=== PATIENT | female | born 1935 | race Caucasian/White ===

== ENCOUNTER → 2016-08-29 10:06 | Outpatient (CLI) | payer MEDICARE, BC ==
[2016-03-24 09:33] VITALS: BMI 23.7
[~2016-08-29 10:06] MED LIST: ADVIL200 MG PO; ASPIRIN81 MG PO; ATROVENT 0.02%2.5 ML UPD; CARDIZEM 90 MG90 MG PO; LEVAQUIN500 MG PO; LISINOPRIL10 MG PO; PRAVACHOL40 MG PO; SYMBICORT 16010.2 GM INH; TENORMIN25 MG PO; VITAMIN B COMPL1 TAB PO; VITAMIN C1000 MG; XOPENEX 0.0.63 MG/3 UPD
== END | disposition home or self-care (01) ==
LOC: D.RT 10:00
DX: J44.9 Chronic obstructive pulmonary disease, unspecified (principal)

== ENCOUNTER → 2017-03-27 13:31 | Outpatient (CLI) | payer MEDICARE, BC ==
[2016-03-24 09:33] VITALS: BMI 23.7
== END | disposition home or self-care (01) ==
LOC: D.CT 03-23 13:00
DX: R91.8 Other nonspecific abnormal finding of lung field (principal)

== ENCOUNTER → 2017-07-09 15:30 | Outpatient (CLI) | payer MEDICARE, BC ==
[2016-03-24 09:33] VITALS: BMI 23.7
== END | disposition home or self-care (01) ==
LOC: D.CT 15:30
DX: R10.9 Unspecified abdominal pain (principal)

== ENCOUNTER 2018-03-13 15:57 | Emergency (ER) | payer MEDICARE ==
[~2018-03-13] VITALS: Ht 172.7 cm; Wt 71.8 kg
[2018-03-13 16:04] VITALS: Ht 172.7 cm; Wt 71.8 kg
[2018-03-13] MEDS ORDERED: ELIQUIS5 MG PO (16:08)
[2018-03-13] MEDS ORDERED: CARDIZEM120 MG PO (16:10)
[2018-03-13] MEDS ORDERED: LISINOPRIL10 MG PO (16:10)
[2018-03-13 18:11] VITALS: BP 148/70
== END 2018-03-13 18:12 | disposition home or self-care (01) ==
LOC: D.ER 15:57
DX: S09.90XA Unspecified injury of head, initial encounter (principal); W20.8XXA Other cause of strike by thrown, projected or falling object, initial encounter; Y93.89 Activity, other specified; Y92.019 Unspecified place in single-family (private) house as the place of occurrence of the external cause; R51 Headache; I10 Essential (primary) hypertension; I50.9 Heart failure, unspecified; I25.10 Atherosclerotic heart disease of native coronary artery without angina pectoris; J44.9 Chronic obstructive pulmonary disease, unspecified; F17.200 Nicotine dependence, unspecified, uncomplicated

== ENCOUNTER → 2018-03-25 13:15 | Outpatient (CLI) | payer MEDICARE, MEDICAID ==
[2018-03-13 16:04] VITALS: BMI 24.0
[~2018-03-25 13:15] MED LIST changes: +ASPIRIN325 MG PO; +BYSTOLIC5 MG PO; +CARDIZEM120 MG PO; +ELIQUIS5 MG PO; +FLORAJEN3 CAPS460 MG PO; +FLUTICASONE PRO16 GM NASAL; +IPRAT-ALBUT 0.5-3 ML INH; +LOSARTAN POTASS25 MG PO; +NICODERM C1 PATCH .1 TRANSDERM; +OMNICEF300 MG PO; +PROAIR HFA8.5 GM INH; +TESSALON PERLE100 MG PO; +VITAMIN E400 UNI2 PO
== END | disposition home or self-care (01) ==
LOC: D.RT 13:15
DX: R93.8 Abnormal findings on diagnostic imaging of other specified body structures (principal); J44.9 Chronic obstructive pulmonary disease, unspecified

== ENCOUNTER 2018-04-21 19:54 | Inpatient (IN) | payer MEDICARE, MEDICAID ==
[~2018-04-21] VITALS: Ht 172.7 cm; Wt 72.7 kg
--- NOTE | ~2018-04-21 | EC ---
PATIENT:BAIRON JASSO DATE OF SERVICE: 04/24/18 SEX: F MEDICAL RECORD: [id number] DATE OF : [birth year] LOCATION:D.MS [facility] AGE OF PATIENT: 82 ADMISSION DATE: 04/24/18 REFERRING PHYSICIAN: INTERPRETING PHYSICIAN: EBONY WORKMAN MD ECHOCARDIOGRAM REPORT ECHO CHARGES 4 ECHO COMPLETE Date: 04/25/18 CLINICAL DIAGNOSIS: CVA ECHOCARDIOGRAPHIC MEASUREMENTS (adult normal given) AC root (d.<3.7cm) 3.5 cm LV Septum d (<1.2 cm> 1.4 cm Valve Excursion 1.5 cm LV Septum (systole) 1.88 cm Left Atria (s.<4.0cm> 3.0 cm LVPW d(<1.2cm) 1.5 cm RV (d.<2.3cm) 2.9 cm LVPW (sytole) 1.6 cm LV diastole(<5.6CM) 3.9 cm MV E-F(>70mm/sec) cm LV systole 2.7 cm LVOT Diameter 1.7 cm MV exc.(>10mm) 14 cm Est.ejection fraction (50-75%) % DOPPLER: LVIT cm/sec A 114 cm/sec E 104 cm/sec LA cm/sec RVSP 25 mmHg LVOT 149 cm/sec AOP1/2T m/s Asc. Ao 175 cm/sec RVOT 108 cm/sec RA cm/sec PA 123 cm/sec AV Gradient Peak 12.25mmHg AV Mean 6.87 mmHg AV Area 2.0 cm MV Gradient Peak 5.77 mmHg MV Mean 2.94 mmHg MV Area cm COMMENTS: Log Buncher: Heide URRUTIA Forest Engineer: 1 Dr. Workman TAPE# PACS Pericardial Effusion N DATE OF SERVICE: 04/25/2018 FINDINGS: 1. Left ventricular chamber size is within normal limits. Left ventricular systolic function is normal. Overall ejection fraction is estimated at 60%. 2. Left atrium, right atrium, and right ventricle chamber sizes are within normal limit. Left atrium measures 3.0 cm. 3. Valvular structures have normal structure and motion. 4. Doppler interrogation reveals only trace tricuspid regurgitation. No other valvular insufficiency or stenosis. ECHOCARDIOGRAM REPORT [id number] BAIRON JASSO 5. Tiny patent foramen ovale is seen with minimal [id number] shunt. Pulmonary systolic pressure is normal, estimated at 25 mmHg. 6. No evidence of pericardial effusion or left ventricular thrombus. TRANSINT:[id number] Voice Confirmation ID: [id number] DOCUMENT ID: [id number] EBONY WORKMAN MD at 1950 CC: [id number] DICTATION DATE: 04/25/18 1617 SAXOPHONE ASSEMBLER: 04/25/18 1710 DIS IN 04/26/18 [place] [id number] [place] [id number]
--- NOTE | ~2018-04-21 | HP ---
PATIENT: BAIRON JASSO MEDICAL RECORD: [id number] ACCOUNT: [id number] LOCATION:D.MS [facility] : [birth year] ADMISSION DATE: 04/21/18 HISTORY AND PHYSICAL EXAMINATION HISTORY OF PRESENT ILLNESS: An 82-year-old female presented to the Emergency Room with a complaint of numbness, tingling of right hand, right lower lip, weakness in her left leg was having difficulty holding on to stuff, has had past episodes of this. It was more severe last night, brought in by EMS for evaluation. She had a CT scan of her head at the end of February, which showed chronic small vessel disease with cerebral atrophy. PAST MEDICAL HISTORY: Significant for hypertension, hyperlipidemia, paroxysmal atrial fibrillation, abdominal aortic aneurysm, nicotine dependence 60+ pack years, hypothyroidism, COPD, recurrent pneumonia. ALLERGIES: CODEINE, SULFA DRUGS, reported severe agitation with PAIN MEDICATIONS. CURRENT MEDICATIONS: Reviewed with the patient, Eliquis 5 mg b.i.d., lisinopril, Bystolic, pravastatin, home inhalers. REVIEW OF SYSTEMS: GENERAL: No acute change in weight or appetite. HEENT: Mild headache. No visual changes, no tinnitus, no epistaxis, no dysphagia. CARDIOVASCULAR: History as above. Denies chest pain, denies palpitations. Had a significant elevation in her blood pressure on presentation to the Emergency Room. PULMONARY: Denies hemoptysis, chronic cough, wheeze, COPD. Reports being treated for pneumonia as outpatient from urgent care on antibiotics, but is afebrile. GASTROINTESTINAL: Denies hematemesis, hematochezia, or melena. GENITOURINARY: Denies dysuria. Denies any change in frequency. MUSCULOSKELETAL: Degenerative arthritis. NEUROLOGIC: Mild right upper extremity weakness. She reports tingling in her right hand, significantly improved with control of her blood pressure. PHYSICAL EXAMINATION: VITAL SIGNS: Temp 99, blood pressure 128/47, heart rate 64, respirations 18, O2 sats 93%. Of note, blood pressure on admission to the ER was 218/95, was treated in the ER. Presently again is 128/47. GENERAL: Alert, oriented, ambulating independently, answers appropriately. HEENT: Normocephalic, atraumatic. Eyes: Pupils are equally round and reactive. Ears: Canals patent, TMs are intact. Nose: Nares patent without drainage. Throat: No erythema, no exudates. NECK: Supple. No lymphadenopathy. No appreciable carotid bruits. HEART: Presently regular rate and rhythm. History of paroxysmal atrial fibrillation. ABDOMEN: Soft, nontender. Bowel sounds in all 4 quadrants. EXTREMITIES: Present times 4. NEUROLOGIC: Intact. Mild right upper extremity weakness. She is unclear if this is residual from her TIA like symptoms which is chronic. She is otherwise back to her baseline per patient. Again, she is ambulatory independently. HISTORY AND PHYSICAL [id number] BAIRON JASSO We will obtain labs, attempt to obtain MRI. The patient was unable to participate or remain supine long enough for an MRI. She does agree to CT scan. ASSESSMENT AND PLAN: 1. Hypertensive crisis. Blood pressure control, monitor. 2. History of paroxysmal atrial fibrillation. We will resume home medications, adjust as needed. We will obtain carotid ultrasound and CT of the head. 3. Exacerbation of COPD. DuoNebs q.i.d. Continue DuoNebs, supportive care. Rocephin 1 gram daily. We will obtain sputum and blood cultures. The patient declines to see Dr. Stauffer. She has seen him in the past and they did not agree. She normally sees Dr. Austin. 4. Nicotine dependence, nicotine patch. Counseled on smoking cessation. TRANSINT:[id number] Voice Confirmation ID: [id number] DOCUMENT ID: [id number] ERASTO AGUAYO DO at 1259 CC: [id number] DICTATION DATE: 04/22/18 1221 TACK PULLER: 04/22/18 1254 [facility] [place] [id number] [place] [address]
--- NOTE | ~2018-04-21 | CN ---
PATIENT NAME:BAIRON JASSO MEDICAL RECORD: [id number] : 39 LOCATION:D.MS [facility] ADMIT DATE: 04/24/18 ACCOUNT: [id number] CONSULTING PHYSICIAN: EBONY EM MD REFERRING PHYSICIAN: CRISTIAN ROSA DO DATE OF CONSULTATION: 04/26/2018 ADMITTING DIAGNOSES: 1. Angina. 2. Coronary artery disease. 3. Previous PTCA stent. 4. CVA. 5. Hypertension. 6. COPD. HISTORY OF PRESENT ILLNESS: Mrs. Jasso presented with CVA. She was set to go to rehab today; however, she had an episode of chest discomfort. The chest discomfort lasted only approximately 5-10 minutes. She occasionally gets chest discomfort. She has a past history of coronary artery disease. Last cardiac stent was approximately 2 years ago. She is currently on Bystolic and losartan for blood pressure and hyperlipidemia was controlled with pravastatin. PHYSICAL EXAMINATION: GENERAL APPEARANCE: Well-nourished, well-developed, appears stated age. Level of distress, comfortable. VITAL SIGNS: Her heart rate has been in the 70s, systolic blood pressure in the 120-130 range. PSYCHIATRIC: Mental status, alert, normal affect. Orientation, oriented to time, place and person. EYES: Lids and conjunctiva, noninjected. No discharge, no pallor. ENT: Lips, teeth, gums, normal dentition. Oropharynx, no cyanosis, no pallor. NECK: Carotid arteries, bilateral normal upstroke, no bruits, no thrills. JUGULAR VEINS: No jugular venous pressure or distention. CERVICAL LYMPH NODES: Nontender, nonenlarged. THYROID: Not enlarged. Nontender. No nodules. LUNGS: Respiratory effort, unlabored. CHEST: Normal curvature. No thoracic deformity. No chest wall tenderness. Percussion, resonant. Auscultation, clear. No wheezes, no rales, no rhonchi. CARDIOVASCULAR: Precordial exam, nondisplaced. No heaves or pericardial thrills. Rate and rhythm, regular. Heart sounds, normal S1, normal S2. No S3, no gallop, no rub. Systolic murmur, not heard. Diastolic murmur, not heard. EXTREMITIES: No cyanosis, no edema. Peripheral pulses, full and equal in all extremities, except as noted. No bruits appreciated. ABDOMEN: Soft, nondistended. Normal aorta. No bruit. Nontender. No masses. Liver, nontender, no hepatomegaly. Spleen, nontender, no splenomegaly. MUSCULOSKELETAL: No joint tenderness. No joint swelling. No erythema. NEUROLOGICAL: Normal gait, normal strength, normal tone. SKIN: Warm and dry. EKG is with no changes. IMPRESSION: No further episodes of chest pain, stable from a cardiac standpoint. She can go to rehab. TRANSINT:[id number] Voice Confirmation ID: [id number] DOCUMENT ID: [id number] CONSULT REPORT [id number] LOUISA,EBONY CUMMINGS MD at 1950 CC: [id number] DICTATION DATE: 04/26/18 1247 CIRCULAR SAWYER STONE: 04/26/18 1252 DIS IN 04/26/18 [facility] [address] [place] [address]
[~2018-04-21 19:54] MED LIST changes: -ASPIRIN325 MG PO; -BYSTOLIC5 MG PO; -FLORAJEN3 CAPS460 MG PO; -FLUTICASONE PRO16 GM NASAL; -IPRAT-ALBUT 0.5-3 ML INH; -LOSARTAN POTASS25 MG PO; -NICODERM C1 PATCH .1 TRANSDERM; -OMNICEF300 MG PO; -PROAIR HFA8.5 GM INH; -TESSALON PERLE100 MG PO; -VITAMIN E400 UNI2 PO
[2018-04-21 20:30] VITALS: BP 218/95
[2018-04-21 21:07] VITALS: BP 184/84
[2018-04-21 21:39] VITALS: BP 143/68
[2018-04-22 02:15] VITALS: BP 173/84; Ht 172.7 cm; Wt 72.7 kg
[2018-04-22 04:25] VITALS: BP 128/47
[2018-04-22] MEDS ORDERED: LOSARTAN POTASS25 MG PO (12:23)
[2018-04-22] MEDS ORDERED: BYSTOLIC5 MG PO (12:24)
[2018-04-22] MEDS ORDERED: OMNICEF300 MG PO (12:24)
[2018-04-22] MEDS ORDERED: VITAMIN E400 UNI2 PO (12:26)
[2018-04-22] MEDS ORDERED: PROAIR HFA8.5 GM INH (12:27)
[2018-04-22 13:39] LABS: BASOPHILS 0.2 % (0-2); EOSINOPHILS 2.9 % (0-7); HEMATOCRIT 45.2 % (36.0-48.0); HEMOGLOBIN 15.5 g/dL (12-16); IMMATURE GRANULOCYTES 0.6 % (0-5); LYMPHOCYTES 27.6 % (15-50); MCH 30.9 pg (26.0-34.0); MCHC 34.3 g/dL (31.0-37.0); MCV 90.2 fL (80.0-100.0); MEAN PLATELET VOLUME 9.8 fL (7.4-10.4); MONOCYTES 7.3 % (2-11); NEUTROPHILS 61.4 % (40-80); PLATELET COUNT 249 10x3/uL (130-400); RBC 5.01 10x6/uL (4.00-5.40); RDW 13.6 % (11.5-14.5); WBC 10.1 10x3/uL (4.8-10.8)
[2018-04-22 14:03] LABS: CALC OSMOLALITY 266 mosm/kg (275-300); CHLORIDE - SERUM 96 mmol/L (98-107); CKMB 2.4 U/L (0.0-3.6); CREATININE - SERUM 0.7 mg/dL (0.6-1.3); GLUCOSE 126 mg/dL (74-106); POTASSIUM - SERUM 5.2 mmol/L (3.5-5.1); SODIUM 132 mmol/L (136-145); TROPONIN-I < 0.017 ng/mL (0.000-0.060); UREA NITROGEN 12 mg/dL (7-18); eGFR NON AFRICAN AMERICAN 85 mL/min (90-120)
[2018-04-22 18:34] VITALS: BP 125/63
[2018-04-22 22:14] VITALS: BP 135/59
[2018-04-23 04:33] LABS: BASOPHILS 0.2 % (0-2); EOSINOPHILS 2.7 % (0-7); HEMATOCRIT 41.8 % (36.0-48.0); HEMOGLOBIN 14.5 g/dL (12-16); IMMATURE GRANULOCYTES 0.6 % (0-5); LYMPHOCYTES 28.1 % (15-50); MCH 30.7 pg (26.0-34.0); MCHC 34.7 g/dL (31.0-37.0); MCV 88.4 fL (80.0-100.0); MEAN PLATELET VOLUME 9.6 fL (7.4-10.4); MONOCYTES 8.6 % (2-11); NEUTROPHILS 59.8 % (40-80); PLATELET COUNT 276 10x3/uL (130-400); RBC 4.73 10x6/uL (4.00-5.40); RDW 13.5 % (11.5-14.5); WBC 10.5 10x3/uL (4.8-10.8)
[2018-04-23 04:47] LABS: APTT 31.7 SECONDS (22.8-39.4); INR 0.97 (0.85-1.17); PROTIME 12.5 SECONDS (11.6-15.0)
[2018-04-23 04:56] LABS: ALBUMIN 3.3 g/dL (3.4-5.0); ANION GAP 10.9 mmol/L (8-16); BILIRUBIN - TOTAL 0.31 mg/dL (0.2-1.3); CALCIUM 8.4 mg/dL (8.5-10.1); CARBON DIOXIDE 26.1 mmol/L (21.0-32.0); CREATININE - SERUM 0.8 mg/dL (0.6-1.3); PROTEIN - SERUM 6.4 g/dL (6.4-8.2)
[2018-04-23 08:24] VITALS: BP 135/58
[2018-04-23 12:42] VITALS: BP 104/44
[2018-04-23 16:02] VITALS: BP 115/73
[2018-04-23 20:00] VITALS: BP 134/64
[2018-04-24 08:17] VITALS: BP 147/70
[2018-04-24 08:22] LABS: BASOPHILS 0.3 % (0-2); EOSINOPHILS 5.3 % (0-7); HEMATOCRIT 43.7 % (36.0-48.0); HEMOGLOBIN 15.1 g/dL (12-16); IMMATURE GRANULOCYTES 0.6 % (0-5); LYMPHOCYTES 25.6 % (15-50); MCH 30.4 pg (26.0-34.0); MCHC 34.6 g/dL (31.0-37.0); MCV 88.1 fL (80.0-100.0); MEAN PLATELET VOLUME 9.3 fL (7.4-10.4); MONOCYTES 8.1 % (2-11); NEUTROPHILS 60.1 % (40-80); PLATELET COUNT 263 10x3/uL (130-400); RBC 4.96 10x6/uL (4.00-5.40); RDW 13.6 % (11.5-14.5); WBC 9.9 10x3/uL (4.8-10.8)
[2018-04-24 08:45] LABS: ALBUMIN 3.5 g/dL (3.4-5.0); ALKALINE PHOSPHATASE 64 U/L (46-116); BILIRUBIN - TOTAL 0.43 mg/dL (0.2-1.3); CALC OSMOLALITY 263 mosm/kg (275-300); CALCIUM 8.5 mg/dL (8.5-10.1); CARBON DIOXIDE 27.9 mmol/L (21.0-32.0); CHLORIDE - SERUM 97 mmol/L (98-107); CREATININE - SERUM 0.7 mg/dL (0.6-1.3); GLUCOSE 132 mg/dL (74-106); POTASSIUM - SERUM 4.3 mmol/L (3.5-5.1); PROTEIN - SERUM 6.5 g/dL (6.4-8.2); SODIUM 131 mmol/L (136-145); UREA NITROGEN 11 mg/dL (7-18); eGFR NON AFRICAN AMERICAN 85 mL/min (90-120)
[2018-04-24 08:50] LABS: ALT (SGPT) 32 U/L (10-68)
[2018-04-24 16:38] VITALS: BP 125/66
[2018-04-24 21:13] VITALS: BP 124/64
[2018-04-25 04:34] LABS: BASOPHILS 0.2 % (0-2); EOSINOPHILS 6.3 % (0-7); IMMATURE GRANULOCYTES 0.7 % (0-5); LYMPHOCYTES 26.4 % (15-50); MCH 30.2 pg (26.0-34.0); MCHC 34.1 g/dL (31.0-37.0); MCV 88.6 fL (80.0-100.0); MEAN PLATELET VOLUME 9.2 fL (7.4-10.4); MONOCYTES 8.6 % (2-11); NEUTROPHILS 57.8 % (40-80); PLATELET COUNT 260 10x3/uL (130-400); RBC 4.63 10x6/uL (4.00-5.40); RDW 13.6 % (11.5-14.5)
[2018-04-25 04:49] LABS: ALBUMIN 3.1 g/dL (3.4-5.0); ALKALINE PHOSPHATASE 66 U/L (46-116); ALT (SGPT) 31 U/L (10-68); BILIRUBIN - TOTAL 0.38 mg/dL (0.2-1.3); CALC OSMOLALITY 261 mosm/kg (275-300); CALCIUM 8.5 mg/dL (8.5-10.1); CARBON DIOXIDE 29.1 mmol/L (21.0-32.0); CHLORIDE - SERUM 97 mmol/L (98-107); CREATININE - SERUM 0.6 mg/dL (0.6-1.3); GLUCOSE 111 mg/dL (74-106); POTASSIUM - SERUM 4.2 mmol/L (3.5-5.1); PROTEIN - SERUM 6.2 g/dL (6.4-8.2); SODIUM 130 mmol/L (136-145); UREA NITROGEN 13 mg/dL (7-18); eGFR NON AFRICAN AMERICAN > 90 mL/min (90-120)
[2018-04-25 05:14] VITALS: BP 128/69
[2018-04-25 05:28] VITALS: BP 134/64
[2018-04-25 09:30] VITALS: BP 134/64
[2018-04-25 12:34] VITALS: BP 119/65
[2018-04-25 18:35] VITALS: BP 123/71
[2018-04-25 21:05] VITALS: BP 123/70
[2018-04-26 04:18] LABS: HEMATOCRIT 40.1 % (36.0-48.0); HEMOGLOBIN 13.6 g/dL (12-16); LYMPHOCYTES 27.8 % (15-50); MCH 29.9 pg (26.0-34.0); MCHC 33.9 g/dL (31.0-37.0); MCV 88.1 fL (80.0-100.0); NEUTROPHILS 58.4 % (40-80); PLATELET COUNT 255 10x3/uL (130-400); RBC 4.55 10x6/uL (4.00-5.40); RDW 14.1 % (11.5-14.5); WBC 7.8 10x3/uL (4.8-10.8)
[2018-04-26 04:28] LABS: ALBUMIN 3.1 g/dL (3.4-5.0); ALKALINE PHOSPHATASE 60 U/L (46-116); ALT (SGPT) 31 U/L (10-68); BILIRUBIN - TOTAL 0.44 mg/dL (0.2-1.3); CALC OSMOLALITY 259 mosm/kg (275-300); CALCIUM 8.4 mg/dL (8.5-10.1); CARBON DIOXIDE 29.1 mmol/L (21.0-32.0); CHLORIDE - SERUM 97 mmol/L (98-107); CREATININE - SERUM 0.6 mg/dL (0.6-1.3); GLUCOSE 107 mg/dL (74-106); POTASSIUM - SERUM 4.2 mmol/L (3.5-5.1); PROTEIN - SERUM 6.2 g/dL (6.4-8.2); SODIUM 129 mmol/L (136-145); UREA NITROGEN 16 mg/dL (7-18); eGFR NON AFRICAN AMERICAN > 90 mL/min (90-120)
[2018-04-26 05:07] VITALS: BP 121/76
[2018-04-26 08:44] VITALS: BP 134/63
[2018-04-26] MEDS ORDERED: NICODERM C1 PATCH .1 TRANSDERM (09:26)
[2018-04-26] MEDS ORDERED: IPRAT-ALBUT 0.5-3 ML INH (09:26)
[2018-04-26] MEDS ORDERED: ASPIRIN325 MG PO (09:27)
[2018-04-26] MEDS ORDERED: TESSALON PERLE100 MG PO (09:27)
[2018-04-26] MEDS ORDERED: FLORAJEN3 CAPS460 MG PO (09:27)
[2018-04-26] MEDS ORDERED: FLUTICASONE PRO16 GM NASAL (09:27)
[2018-04-26 11:47] LABS: CKMB 2.5 U/L (0.0-3.6); CREATINE KINASE 58 UL (21-215); TROPONIN-I < 0.017 ng/mL (0.000-0.060)
[2018-04-26 12:57] VITALS: BP 122/63
== END 2018-04-26 15:20 | DRG 64 ==
LOC: D.ER 19:54 → D.MS 22:35 → OBSVTIME 22:35 → D.MS 04-24 06:45
PROVIDERS: Family Medicine
DX: I63.8 Other cerebral infarction (principal); J18.9 Pneumonia, unspecified organism; R51 Headache; R53.1 Weakness; R07.9 Chest pain, unspecified

== ENCOUNTER 2018-04-26 16:10 | Inpatient (IN) | payer MEDICARE, MEDICAID ==
[~2018-04-26] VITALS: Ht 172.7 cm; Wt 72.6 kg
--- NOTE | ~2018-04-26 | RHP ---
PATIENT: BAIRON JASSO MEDICAL RECORD: [id number] ACCOUNT: [id number] LOCATION:[facility] [address] : [birth year] ADMISSION DATE: 04/26/18 REHABILITATION HISTORY AND PHYSICAL EXAMINATION POST ADMISSION PHYSICIAN EXAMINATION POST-ADMISSION PHYSICAL EXAMINATION AND HISTORY AND PHYSICAL DATE OF ADMISSION: 04/26/2018 ADMITTING DIAGNOSIS: Acute lacunar infarct in the left thalamus. HISTORY OF PRESENT ILLNESS: The patient admitted to inpatient rehab with CVA. She has lacunar infarct within the left thalamus. Dr. Workman was consulted prior to rehab admission as she had an episode of chest pain. Chest discomfort lasted only 5-10 minutes. She occasionally gets chest discomfort. She has past medical history of coronary artery disease. She had a coronary stent approximately 2 years ago. She is currently on Bystolic and losartan for blood pressure and hyperlipidemia, which is controlled by Pravachol. They continued to manage while in rehab and will continue telemetry on her throughout her stay. She initially presented to the Emergency Room on 04/24/2018, with complains of numbness and tingling in her right arm, right lower lip, weakness in her left leg, having difficulty holding on to things. She had episodes of this in the past. It was more severe, the night prior to this. She was brought in by EMS for evaluation, had a CT of her head at the end of February, which showed chronic small vessel disease and cerebral atrophy. She got a history of COPD and acute exacerbation, recurrent pneumonia and uses CPAP at home. She has CHF and history of seizures and vertigo. She currently is an everyday smoker. Prior to this admission, she lived alone, was completely independent with ADLs and ambulation, was driving her own car. Currently presenting with decreased standing balance and exhibits impairment with gross and fine motor coordination. She is at risk to fall due to her poor dynamic standing balance. She has ambulated 150 feet with bilateral hands hold for stability and several episodes of loss of balance, which required intensive PT and OT in order to return her back to her prior level of functioning. ST evaluation also states that her speech is intelligible, although noticeably in error secondary to her ataxia, dysarthria. She will require follow up for oral stage dysphagia, dysarthria and cognitive linguistic defects. Barriers include living alone, respiratory status endurance, smoking. She will require medical management of these listed comorbidities in order to get back to her prior level of functioning and hopefully return back to home. COMORBIDITIES: Include hypertensive crisis, COPD, shortness of breath, fever, headache, pancreatitis, paroxysmal atrial fib, TIA, CHF, coronary artery disease, hyperlipidemia, nicotine dependence, recurrent pneumonia, emphysema, atherosclerotic disease, arthritis and osteoporosis. PAST MEDICAL HISTORY: Significant for hypertension, hyperlipidemia, paroxysmal atrial fib, abdominal aortic aneurysm and nicotine dependence, hypothyroidism, COPD and recurrent pneumonia. PAST SURGICAL HISTORY: Please see previous charts. ALLERGIES: CODEINE AND SULFA DRUGS. HISTORY AND PHYSICAL [id number] LOUISA,BAIRON Xiong CURRENT MEDICATIONS: Include DuoNeb updrafts q.i.d., aspirin chewable 81 mg daily, vitamin B complex vitamin daily, vitamin E 400 units daily, and Nicoderm patch 14 mg every 24 hours, Bystolic 5 mg daily, Floranex 460 mg daily, Flonase nasal spray 1 spray daily, Pravachol 40 mg at bedtime, Cozaar 25 mg at bedtime, Tylenol 500 mg q.6 hours p.r.n., Tessalon Perles 100 mg t.i.d. and albuterol updrafts p.r.n. and also Eliquis 5 mg b.i.d. HABITS: Does have a history of tobacco use. FAMILY HISTORY: Noncontributory. SOCIAL HISTORY: The patient hopes to return back home and get back to her prior level of functioning. REVIEW OF SYSTEMS: GENERAL: Does complain of weakness and fatigue. HEENT: Denies cold, cough, or congestion. CARDIOVASCULAR: Denies chest pain. PHYSICAL EXAMINATION: VITAL SIGNS: Stable, afebrile. Generally an elderly female, in no acute distress, alert upon exam. HEENT: Normocephalic and atraumatic. Mucosa moist. NECK: Supple. No lymphadenopathy. LUNGS: Clear at this time. HEART: Regular rate and rhythm. ABDOMEN: Benign. EXTREMITIES: No clubbing, cyanosis or edema. NEUROLOGIC: She does have some noted weakness. LABORATORY DATA: White count 7.8, H&H 13 and 40, and platelet count was noted to be 255. Her admit chemistry showed a sodium of 129, potassium 4.2, BUN and creatinine of 16 and 0.6 and blood sugar was noted to be 107. Urine that was done on 03/24/2018, showed no signs of any problems. Her rheumatoid and her AIDEN screen were both negative. ASSESSMENT: This is an 82-year-old female patient admitted to rehab with a working diagnosis of lacunar infarct or cerebrovascular accident. The patient has potential to make improvement. We instituted the following multidisciplinary therapies including but not limited to physical, occupational, respiratory, speech, nutritional services, prosthetics and orthotics. Given her complex medical condition and risk for more complications, rehabilitation services, cannot be provided at a low level of care such as skilled nurse facility. PLAN: 1. Admit to [facility] for intensive inpatient therapy to include the following disciplines: A. Physical therapy to improve gait, all transfer skills and bed mobility to a modified independent level. B. Occupational therapy to a modified independent level. C. Case management to assist with discharge planning and placement options. D. Nutrition to assist with nutritional needs. E. Rehabilitation nursing to assist in monitoring the patient's underlying HISTORY AND PHYSICAL [id number] LOUISA,BAIRON B medical conditions and to assist with any type of bowel or bladder management. 2. The patient's current medication and medical care will be continued. 3. The patient will be placed on standard fall precautions. 4. We will follow up in the a.m. 5. We will watch closely and have her follow up with speech therapy and will get her back home as soon as possible. TRANSINT:[id number] Voice Confirmation ID: [id number] DOCUMENT ID: [id number] MJ notes whether there has been none or any medical/functional change since admission: - No change since preadmission screen. MJ attests patient continues to be appropriate for IRF: - Continues to be appropriate. YISSEL RAM MD at 1733 CC: [id number] DICTATION DATE: 04/26/182158 SILK SCREEN PAINTER: 04/26/18 5132 DIS IN 05/01/18 [place] [id number] [place] [address]
[~2018-04-26 16:10] MED LIST changes: +ASPIRIN325 MG PO; +BYSTOLIC5 MG PO; +FLORAJEN3 CAPS460 MG PO; +FLUTICASONE PRO16 GM NASAL; +IPRAT-ALBUT 0.5-3 ML INH; +LOSARTAN POTASS25 MG PO; +NICODERM C1 PATCH .1 TRANSDERM; +OMNICEF300 MG PO; +PROAIR HFA8.5 GM INH; +TESSALON PERLE100 MG PO; +VITAMIN E400 UNI2 PO
[2018-04-26 17:14] VITALS: BP 135/63; BMI 24.3
[2018-04-26 19:00] VITALS: BP 139/69
[2018-04-27 06:10] LABS: BASOPHILS 0.4 % (0-2); EOSINOPHILS 6.8 % (0-7); HEMATOCRIT 39.1 % (36.0-48.0); HEMOGLOBIN 13.5 g/dL (12-16); IMMATURE GRANULOCYTES 0.6 % (0-5); LYMPHOCYTES 25.3 % (15-50); MCH 30.5 pg (26.0-34.0); MCHC 34.5 g/dL (31.0-37.0); MCV 88.5 fL (80.0-100.0); MONOCYTES 8.8 % (2-11); NEUTROPHILS 58.1 % (40-80); PLATELET COUNT 255 10x3/uL (130-400); RBC 4.42 10x6/uL (4.00-5.40); RDW 13.4 % (11.5-14.5)
[2018-04-27 06:38] LABS: CALC OSMOLALITY 260 mosm/kg (275-300); CALCIUM 8.1 mg/dL (8.5-10.1); CARBON DIOXIDE 27.6 mmol/L (21.0-32.0); CHLORIDE - SERUM 96 mmol/L (98-107); CREATININE - SERUM 0.7 mg/dL (0.6-1.3); GLUCOSE 99 mg/dL (74-106); POTASSIUM - SERUM 4.3 mmol/L (3.5-5.1); SODIUM 130 mmol/L (136-145); UREA NITROGEN 13 mg/dL (7-18); eGFR NON AFRICAN AMERICAN 85 mL/min (90-120)
[2018-04-27 08:00] VITALS: BP 106/53
[2018-04-27 09:23] VITALS: Ht 172.7 cm; Wt 72.6 kg
[2018-04-27 23:05] VITALS: BP 110/66
[2018-04-28 08:00] VITALS: BP 125/73
[2018-04-28 20:46] VITALS: BP 143/43
[2018-04-29 06:23] LABS: BASOPHILS 0.4 % (0-2); EOSINOPHILS 6.4 % (0-7); HEMATOCRIT 37.7 % (36.0-48.0); HEMOGLOBIN 12.9 g/dL (12-16); IMMATURE GRANULOCYTES 0.3 % (0-5); LYMPHOCYTES 26.3 % (15-50); MCH 30.4 pg (26.0-34.0); MCHC 34.2 g/dL (31.0-37.0); MCV 88.9 fL (80.0-100.0); MEAN PLATELET VOLUME 9.1 fL (7.4-10.4); MONOCYTES 12.3 % (2-11); NEUTROPHILS 54.3 % (40-80); PLATELET COUNT 240 10x3/uL (130-400); RBC 4.24 10x6/uL (4.00-5.40); RDW 13.5 % (11.5-14.5); WBC 7.8 10x3/uL (4.8-10.8)
[2018-04-29 06:35] LABS: CALC OSMOLALITY 265 mosm/kg (275-300); CALCIUM 8.4 mg/dL (8.5-10.1); CARBON DIOXIDE 27.2 mmol/L (21.0-32.0); CHLORIDE - SERUM 98 mmol/L (98-107); CREATININE - SERUM 0.6 mg/dL (0.6-1.3); GLUCOSE 100 mg/dL (74-106); POTASSIUM - SERUM 4.2 mmol/L (3.5-5.1); SODIUM 132 mmol/L (136-145); UREA NITROGEN 15 mg/dL (7-18); eGFR NON AFRICAN AMERICAN > 90 mL/min (90-120)
[2018-04-29 07:48] VITALS: BP 138/68
[2018-04-29 19:00] VITALS: BP 124/59
[2018-04-30 08:57] VITALS: BP 134/69
[2018-04-30 19:00] VITALS: BP 136/61
[2018-05-01 08:00] VITALS: BP 131/73
== END 2018-05-01 11:22 | disposition home or self-care (01) | DRG 56 ==
LOC: D.REHAB 16:10
PROVIDERS: Emergency Medicine
DX: I69.30 Unspecified sequelae of cerebral infarction (principal); K85.90 Acute pancreatitis without necrosis or infection, unspecified; J18.9 Pneumonia, unspecified organism; I16.9 Hypertensive crisis, unspecified; I11.0 Hypertensive heart disease with heart failure; I50.9 Heart failure, unspecified; R06.02 Shortness of breath; R13.11 Dysphagia, oral phase; R50.9 Fever, unspecified; I48.0 Paroxysmal atrial fibrillation; I25.10 Atherosclerotic heart disease of native coronary artery without angina pectoris; E78.5 Hyperlipidemia, unspecified; F17.200 Nicotine dependence, unspecified, uncomplicated; M81.0 Age-related osteoporosis without current pathological fracture; M19.90 Unspecified osteoarthritis, unspecified site; J43.9 Emphysema, unspecified; R27.0 Ataxia, unspecified; R47.1 Dysarthria and anarthria

== ENCOUNTER 2018-06-13 23:25 | Emergency (ER) | payer MEDICARE, MEDICAID ==
[~2018-06-13] VITALS: Ht 172.7 cm; Wt 72.7 kg
[2018-06-13 23:30] VITALS: Ht 172.7 cm; Wt 72.7 kg
[2018-06-13 23:46] LABS: BASOPHILS 0.4 % (0-2); EOSINOPHILS 4.2 % (0-7); HEMATOCRIT 44.2 % (36.0-48.0); HEMOGLOBIN 14.9 g/dL (12-16); IMMATURE GRANULOCYTES 0.5 % (0-5); LYMPHOCYTES 32.5 % (15-50); MCH 30.8 pg (26.0-34.0); MCHC 33.7 g/dL (31.0-37.0); MCV 91.5 fL (80.0-100.0); MEAN PLATELET VOLUME 9.6 fL (7.4-10.4); MONOCYTES 10.2 % (2-11); NEUTROPHILS 52.2 % (40-80); PLATELET COUNT 238 10x3/uL (130-400); RBC 4.83 10x6/uL (4.00-5.40); RDW 13.8 % (11.5-14.5); WBC 7.6 10x3/uL (4.8-10.8)
[2018-06-13 23:55] LABS: APTT 32.1 SECONDS (22.8-39.4); INR 0.96 (0.85-1.17); PROTIME 12.4 SECONDS (11.6-15.0)
[2018-06-14 00:05] LABS: ALBUMIN 3.9 g/dL (3.4-5.0); ALKALINE PHOSPHATASE 77 U/L (46-116); ALT (SGPT) 36 U/L (10-68); BILIRUBIN - TOTAL 0.36 mg/dL (0.2-1.3); CALC OSMOLALITY 274 mosm/kg (275-300); CALCIUM 8.8 mg/dL (8.5-10.1); CARBON DIOXIDE 31.2 mmol/L (21.0-32.0); CHLORIDE - SERUM 101 mmol/L (98-107); CREATININE - SERUM 0.7 mg/dL (0.6-1.3); GLUCOSE 103 mg/dL (74-106); POTASSIUM - SERUM 3.8 mmol/L (3.5-5.1); PROTEIN - SERUM 7.6 g/dL (6.4-8.2); SODIUM 138 mmol/L (136-145); UREA NITROGEN 11 mg/dL (7-18); eGFR NON AFRICAN AMERICAN 85 mL/min (90-120)
[2018-06-14 00:12] LABS: CKMB 2.7 U/L (0.0-3.6); CREATINE KINASE 72 UL (21-215); MAGNESIUM - SERUM 1.9 mg/dL (1.8-2.4); TROPONIN-I < 0.017 ng/mL (0.000-0.060)
[2018-06-14] MEDS ORDERED: HYDRALAZINE HCL10 MG PO (00:46)
[2018-06-14 01:18] VITALS: BP 113/55
== END 2018-06-14 01:19 | disposition home or self-care (01) ==
LOC: D.ER 23:25
PROVIDERS: Family Medicine
DX: I10 Essential (primary) hypertension (principal); G40.909 Epilepsy, unspecified, not intractable, without status epilepticus; E07.9 Disorder of thyroid, unspecified; I11.0 Hypertensive heart disease with heart failure; I50.9 Heart failure, unspecified; I25.10 Atherosclerotic heart disease of native coronary artery without angina pectoris; J44.9 Chronic obstructive pulmonary disease, unspecified; F17.200 Nicotine dependence, unspecified, uncomplicated

== ENCOUNTER 2018-06-16 20:12 | Inpatient (IN) | payer MEDICARE, MEDICAID ==
[~2018-06-16] VITALS: Ht 172.7 cm; Wt 72.7 kg
--- NOTE | ~2018-06-16 | MORECARE ---
CASE MANAGEMENT DISCHARGE SUMMARY PATIENT: BAIRON JASSO UNIT: [id number] ADM DATE: 06/17/18 AGE: 82 : 37 SEX: F ROOM/BED: D.2449 AUTHOR: ANDREINA QUINONES PHYSICIAN: REFERRING PHYSICIAN: CRISTIAN ROSA DO DATE OF SERVICE: 06/24/18 Discharge Plan Patient Name: BAIRON JASSO Facility: [facility]:[place] : 1935 Planned Disposition: Home Anticipated Discharge Date: 06/22/18 Discharge Date: 06/22/2018 Expected LOS: 5 Initial Reviewer: [email or web address] Initial Review Date: 06/19/2018 Generated: 06/24/18 9:17 am Comments DCP- Discharge Planning Updated by [email or web address]: Eddie Harper on 06/20/18 6:[address] Patient Name: BAIRON JASSO Encounter No: [id number] : 1935 Primary Insurance: [facility] [employer] Anticipated DC Date: 06-19-2018 Planned Disposition: Home DCP follow-up note: CM SPOKE TO PT IN ROOM AT PT'S REQUEST. PT INFORMED CM THAT SHE HAS HAD $20 AND A BOTTLE OF PRESCRIPTION LIBRIUM GO MISSING FROM HER ROOM. CM EXPLAINED THAT CM WILL HAVE SECURITY MAKE REPORT. CM NOTIFIED GAME WARDEN AND KAYCE WITH SECURITY WHO WILL COME BY AND MAKE REPORT SHORTLY. CM NOTIFIED BEDSIDE NURSE KVNG THAT PT HAS HER HOME MEDICATIONS IN ROOM WTIH HER. CM TO CONTINUE TO FOLLOW AND ASSIST IF NEEDED. Eddie Harper DCP- Discharge Planning Updated by [email or web address]: Eddie Harper on 06/19/18 12:[address] Patient Name: BAIRON JASSO Admission Status: ER Accout number: [id number] Admission Date: 06-17-2018 : 1935 Admission Diagnosis:ESSENTIAL (PRIMARY) HYPERTENSION Attending: CRISTIAN ROSA Current LOS: 2 Anticipated DC Date: 06-19-2018 Planned Disposition: Home Primary Insurance: [facility] [employer] SOL[employer] Discharge Planning Comments: CM MET WITH PT IN ROOM TO DISCUSS DISCHARGE PLANNING AND NEEDS. PT REPORTS LIVING AT HOME INDEPENDENTLY AND ALONE. PT HAS CPAP, NEBULIZER, ROLLING WALKER AND SHOWER CHAIR FROM [employer]. PT HAS NO OUTSIDE SERVICES ASSISTING IN THE HOME. CM DISCUSSED AVAILABILITY OF HOME HEALTH, REHAB SERVICES AND MEDICAL EQUIPMENT. PT DENIES DISCHARGE NEEDS, REPORTS HER SON WILL PICK HER UP FOR DISCHARGE HOME. PT REPORTS DISSATISFACTION WITH PREVIOUS HOSPITAL STAY WHERE SHE WAS "KEPT IN OBSERVATION FOR THREE DAYS"; CM EXPLAINED TO BEST OF CM ABILITY OF HOW OBSERVATION AND INPATIENT STATUS ARE DETERMINED. PT REPORTS "WELL THAT'S WATER UNDER THE BRIDGE" AND ASKED CM TO NOTIFY HER NURSE OF BACK PAIN AND WANTING SOMETHING FOR PAIN. IMPORTANT MESSAGE FROM MEDICARE PROVIDED AND EXPLAINED. CM NOTIFIED BEDSIDE NURSE. PT PLANS TO DISCHARGE HOME ALONE, DECLINED HOME HEALTH AND DENIES DISCHARGE NEEDS. PT REPORTS WILL CALL FAMILY FOR TRANSPORTATION HOME. CM TO FOLLOW AND ASSIST NEEDED. Pourer: Eddie Harper DCPIA - Discharge Planning Initial Assessment Updated by [email or web address]: Eddie Harper on 06/19/18 12:44 pm * Is the patient Alert and Oriented? Yes * How many steps to enter\\exit or inside your home? ELEVATOR * PCP DR. ROSA * Pharmacy [facility] * Preadmission Environment Home Alone * ADLs Independent * Equipment CPAP Nebulizer Rolling Walker Shower Chair * Other Equipment [employer] - EQUIPMENT PROVIDER * List name and contact numbers for known caregivers / representatives who currently or will assist patient after discharge: JEAN MARIE BECKER, RESHMA, MIAN BECKER, * Verbal permission to speak to the caregivers and representatives has been obtained from the patient. N/A * Community resources currently utilized None * Please name any agencies selected above. NONE * Additional services required to return to the preadmission environment? No * Can the patient safely return to the preadmission environment? Yes * Has this patient been hospitalized within the prior 30 days at any hospital? No Coverage Notice Reviewer: [id number] - Gemma Lipscomb Notice Issued Date-Time: 06/17/2018 14:45 Notice Type: Medicare Outpatient Observation Notice Notice Delivered To: Patient Relationship to Patient: Self Football Coach Name: Delivery Method: HAND - Hand Delivered Racquel Days: Prior Verbal Notification: Recipient Understood Notice: Yes Recipient Signature: Med Rec Note Co-signed by Attending: Coverage Notice Comment: PATIENT IS BLIND, NOTICE EXPLAINED TO HER AND SHE VERBALIZED UNDERSTANDING. Reviewer: [email or web address] - Eddie Harper Notice Issued Date-Time: 06/19/2018 12:20 Notice Type: IM Discharge Notice Notice Delivered To: Patient Relationship to Patient: Football Coach Name: Delivery Method: HAND - Hand Delivered Racquel Days: Prior Verbal Notification: Recipient Understood Notice: Yes Recipient Signature: Yes Med Rec Note Co-signed by Attending: Coverage Notice Comment: Last DP export: 06/20/18 6:36 p Patient Name: BAIRON JASSO Page [id number] at 0817 All edits/amendments must be made on the electronic document DICTATION DATE: 06/24/18815 CARROTER: DEE 06/24/18815 RPT#: [id number] DC DATE:06/22/18 STATUS: DIS IN [facility] [address] [place] [address] END OF REPORT
--- NOTE | ~2018-06-16 | MORECARE ---
CASE MANAGEMENT DISCHARGE SUMMARY PATIENT: BAIRON JASSO UNIT: [id number] ADM DATE: 06/17/18 AGE: 82 : 37 SEX: F ROOM/BED: D.1811 AUTHOR: ANDREINA QUINONES PHYSICIAN: REFERRING PHYSICIAN: CRISTIAN ROSA DO DATE OF SERVICE: 06/24/18 Discharge Plan Patient Name: BAIRON JASSO Facility: [facility]:[place] : 1935 Planned Disposition: Home Anticipated Discharge Date: 06/22/18 Discharge Date: 06/22/2018 Expected LOS: 5 Initial Reviewer: [id number] Initial Review Date: 06/19/2018 Generated: 06/24/18 9:24 am Comments DCP- Discharge Planning Updated by [id number]: Eddie Harper on 06/20/18 6:[address] Patient Name: BAIRON JASSO Encounter No: [id number] : 1935 Primary Insurance: [facility] MEDICARE SOLUTIONS Anticipated DC Date: 06-19-2018 Planned Disposition: Home DCP follow-up note: CM SPOKE TO PT IN ROOM AT PT'S REQUEST. PT INFORMED CM THAT SHE HAS HAD $20 AND A BOTTLE OF PRESCRIPTION LIBRIUM GO MISSING FROM HER ROOM. CM EXPLAINED THAT CM WILL HAVE SECURITY MAKE REPORT. CM NOTIFIED FIBROUS PLASTERER AND KAYCE WITH SECURITY WHO WILL COME BY AND MAKE REPORT SHORTLY. CM NOTIFIED BEDSIDE NURSE KVNG THAT PT HAS HER HOME MEDICATIONS IN ROOM WTIH HER. CM TO CONTINUE TO FOLLOW AND ASSIST IF NEEDED. Eddie Harper DCP- Discharge Planning Updated by [id number]: Eddie Harper on 06/19/18 12:[address] Patient Name: BAIRON JASSO Admission Status: ER Accout number: [id number] Admission Date: 06-17-2018 : 1935 Admission Diagnosis:ESSENTIAL (PRIMARY) HYPERTENSION Attending: CRISTIAN ROSA Current LOS: 2 Anticipated DC Date: 06-19-2018 Planned Disposition: Home Primary Insurance: [facility] MEDICARE SOLUTIONS Discharge Planning Comments: CM MET WITH PT IN ROOM TO DISCUSS DISCHARGE PLANNING AND NEEDS. PT REPORTS LIVING AT HOME INDEPENDENTLY AND ALONE. PT HAS CPAP, NEBULIZER, ROLLING WALKER AND SHOWER CHAIR FROM [employer]. PT HAS NO OUTSIDE SERVICES ASSISTING IN THE HOME. CM DISCUSSED AVAILABILITY OF HOME HEALTH, REHAB SERVICES AND MEDICAL EQUIPMENT. PT DENIES DISCHARGE NEEDS, REPORTS HER SON WILL PICK HER UP FOR DISCHARGE HOME. PT REPORTS DISSATISFACTION WITH PREVIOUS HOSPITAL STAY WHERE SHE WAS "KEPT IN OBSERVATION FOR THREE DAYS"; CM EXPLAINED TO BEST OF CM ABILITY OF HOW OBSERVATION AND INPATIENT STATUS ARE DETERMINED. PT REPORTS "WELL THAT'S WATER UNDER THE BRIDGE" AND ASKED CM TO NOTIFY HER NURSE OF BACK PAIN AND WANTING SOMETHING FOR PAIN. IMPORTANT MESSAGE FROM MEDICARE PROVIDED AND EXPLAINED. CM NOTIFIED BEDSIDE NURSE. PT PLANS TO DISCHARGE HOME ALONE, DECLINED HOME HEALTH AND DENIES DISCHARGE NEEDS. PT REPORTS WILL CALL FAMILY FOR TRANSPORTATION HOME. CM TO FOLLOW AND ASSIST NEEDED. Psychiatric Rn: Eddie Harper DCPIA - Discharge Planning Initial Assessment Updated by [id number]: Eddie Harper on 06/19/18 12:44 pm * Is the patient Alert and Oriented? Yes * How many steps to enter\\exit or inside your home? ELEVATOR * PCP DR. ROSA * Pharmacy [facility] * Preadmission Environment Home Alone * ADLs Independent * Equipment CPAP Nebulizer Rolling Walker Shower Chair * Other Equipment [employer] - EQUIPMENT PROVIDER * List name and contact numbers for known caregivers / representatives who currently or will assist patient after discharge: JEAN MARIE BECKER, RESHMA, MIAN BECKER, * Verbal permission to speak to the caregivers and representatives has been obtained from the patient. N/A * Community resources currently utilized None * Please name any agencies selected above. NONE * Additional services required to return to the preadmission environment? No * Can the patient safely return to the preadmission environment? Yes * Has this patient been hospitalized within the prior 30 days at any hospital? No Coverage Notice Reviewer: [id number] - Gemma Lipscomb Notice Issued Date-Time: 06/17/2018 14:45 Notice Type: Medicare Outpatient Observation Notice Notice Delivered To: Patient Relationship to Patient: Self Track Subway Repair Supervisor Name: Delivery Method: HAND - Hand Delivered Racquel Days: Prior Verbal Notification: Recipient Understood Notice: Yes Recipient Signature: Med Rec Note Co-signed by Attending: Coverage Notice Comment: PATIENT IS BLIND, NOTICE EXPLAINED TO HER AND SHE VERBALIZED UNDERSTANDING. Reviewer: [id number] - Eddie Harper Notice Issued Date-Time: 06/19/2018 12:20 Notice Type: IM Discharge Notice Notice Delivered To: Patient Relationship to Patient: Track Subway Repair Supervisor Name: Delivery Method: HAND - Hand Delivered Racquel Days: Prior Verbal Notification: Recipient Understood Notice: Yes Recipient Signature: Yes Med Rec Note Co-signed by Attending: Coverage Notice Comment: Last DP export: 06/24/18 7:17 a Patient Name: BAIRON JASSO Page [phone] at 0824 All edits/amendments must be made on the electronic document DICTATION DATE: 06/24/18823 MATERIALS TECHNICIAN: DEE 06/24/18823 RPT#: [id number] DC DATE:06/22/18 STATUS: DIS IN [facility] [address] [place] [address] END OF REPORT
--- NOTE | ~2018-06-16 | MORECARE ---
CASE MANAGEMENT DISCHARGE SUMMARY PATIENT: BAIRON JASSO UNIT: [id number] ADM DATE: 06/17/18 AGE: 82 : 37 SEX: F ROOM/BED: D.4124 AUTHOR: ANDREINA QUINONES PHYSICIAN: REFERRING PHYSICIAN: CRISTIAN ROSA DO DATE OF SERVICE: 06/20/18 Discharge Plan Patient Name: BAIRON JASSO Facility: [facility]:[place] : 1935 Planned Disposition: Home Anticipated Discharge Date: 06/19/18 Discharge Date: Expected LOS: 2 Initial Reviewer: [id number] Initial Review Date: 06/19/2018 Generated: 06/20/18 7:36 pm Comments DCP- Discharge Planning Updated by [id number]: Eddie Harper on 06/20/18 5:[address] Patient Name: BAIRON JASSO Encounter No: [id number] : 1935 Primary Insurance: [facility] MEDICARE SOLUTIONS Anticipated DC Date: 06-19-2018 Planned Disposition: Home DCP follow-up note: CM SPOKE TO PT IN ROOM AT PT'S REQUEST. PT INFORMED CM THAT SHE HAS HAD $20 AND A BOTTLE OF PRESCRIPTION LIBRIUM GO MISSING FROM HER ROOM. CM EXPLAINED THAT CM WILL HAVE SECURITY MAKE REPORT. CM NOTIFIED QUALITY ASSURANCE ANALYST AND KAYCE WITH SECURITY WHO WILL COME BY AND MAKE REPORT SHORTLY. CM NOTIFIED BEDSIDE NURSE KVNG THAT PT HAS HER HOME MEDICATIONS IN ROOM WTIH HER. CM TO CONTINUE TO FOLLOW AND ASSIST IF NEEDED. Eddie Harper DCP- Discharge Planning Updated by [id number]: Eddie Harper on 06/19/18 11:[address] Patient Name: BAIRON JASSO Admission Status: ER Accout number: [id number] Admission Date: 06-17-2018 : 1935 Admission Diagnosis:ESSENTIAL (PRIMARY) HYPERTENSION Attending: CRISTIAN ROSA Current LOS: 2 Anticipated DC Date: 06-19-2018 Planned Disposition: Home Primary Insurance: [facility] MEDICARE SOLUTIONS Discharge Planning Comments: CM MET WITH PT IN ROOM TO DISCUSS DISCHARGE PLANNING AND NEEDS. PT REPORTS LIVING AT HOME INDEPENDENTLY AND ALONE. PT HAS CPAP, NEBULIZER, ROLLING WALKER AND [facility]. PT HAS NO OUTSIDE SERVICES ASSISTING IN THE HOME. CM DISCUSSED AVAILABILITY OF HOME HEALTH, REHAB SERVICES AND MEDICAL EQUIPMENT. PT DENIES DISCHARGE NEEDS, REPORTS HER SON WILL PICK HER UP FOR DISCHARGE HOME. PT REPORTS DISSATISFACTION WITH PREVIOUS HOSPITAL STAY WHERE SHE WAS "KEPT IN OBSERVATION FOR THREE DAYS"; CM EXPLAINED TO BEST OF CM ABILITY OF HOW OBSERVATION AND INPATIENT STATUS ARE DETERMINED. PT REPORTS "WELL THAT'S WATER UNDER THE BRID[place]" AND ASKED CM TO NOTIFY HER NURSE OF BACK PAIN AND WANTING SOMETHING FOR PAIN. IMPORTANT MESSAGE FROM MEDICARE PROVIDED AND EXPLAINED. CM NOTIFIED BEDSIDE NURSE. PT PLANS TO DISCHARGE HOME ALONE, DECLINED HOME HEALTH AND DENIES DISCHARGE NEEDS. PT REPORTS WILL CALL FAMILY FOR TRANSPORTATION HOME. CM TO FOLLOW AND ASSIST NEEDED. Family Dinner Service Specialist: Eddie Harper DCPIA - Discharge Planning Initial Assessment Updated by [id number]: Eddie Harper on 06/19/18 12:44 pm * Is the patient Alert and Oriented? Yes * How many steps to enter\\exit or inside your home? ELEVATOR * PCP DR. ROSA * Pharmacy [facility] * Preadmission Environment Home Alone * ADLs Independent * Equipment CPAP Nebulizer Rolling Walker Shower Chair * Other Equipment [employer] - EQUIPMENT PROVIDER * List name and contact numbers for known caregivers / representatives who currently or will assist patient after discharge: JEAN MARIE BECKER, RESHMA, MIAN BECKER, * Verbal permission to speak to the caregivers and representatives has been obtained from the patient. N/A * Community resources currently utilized None * Please name any agencies selected above. NONE * Additional services required to return to the preadmission environment? No * Can the patient safely return to the preadmission environment? Yes * Has this patient been hospitalized within the prior 30 days at any hospital? No Coverage Notice Reviewer: [id number] - Gemma Lipscomb Notice Issued Date-Time: 06/17/2018 14:45 Notice Type: Medicare Outpatient Observation Notice Notice Delivered To: Patient Relationship to Patient: Self Digital Assistant Name: Delivery Method: HAND - Hand Delivered Racquel Days: Prior Verbal Notification: Recipient Understood Notice: Yes Recipient Signature: Med Rec Note Co-signed by Attending: Coverage Notice Comment: PATIENT IS BLIND, NOTICE EXPLAINED TO HER AND SHE VERBALIZED UNDERSTANDING. Reviewer: [id number] - Eddie Harper Notice Issued Date-Time: 06/19/2018 12:20 Notice Type: IM Discharge Notice Notice Delivered To: Patient Relationship to Patient: Digital Assistant Name: Delivery Method: HAND - Hand Delivered Racquel Days: Prior Verbal Notification: Recipient Understood Notice: Yes Recipient Signature: Yes Med Rec Note Co-signed by Attending: Coverage Notice Comment: Last DP export: 06/19/18 11:58 Patient Name: BAIRON JASSO Page [phone] at 1836 All edits/amendments must be made on the electronic document DICTATION DATE: 06/20/181834 STAFFING RECRUITER: DEE 06/20/181834 RPT#: [id number] DC DATE: STATUS: ADM IN [facility] [address] [place] [address] END OF REPORT
--- NOTE | ~2018-06-16 | MORECARE ---
CASE MANAGEMENT DISCHARGE SUMMARY PATIENT: BAIRON JASSO UNIT: [id number] ADM DATE: 06/17/18 AGE: 82 : 37 SEX: F ROOM/BED: D.[facility]9 AUTHOR: ANDREINA QUINONES PHYSICIAN: REFERRING PHYSICIAN: CRISTIAN ROSA DO DATE OF SERVICE: 06/19/18 Discharge Plan Patient Name: BAIRON JASSO Facility: [facility]:[place] : 1935 Planned Disposition: Home Anticipated Discharge Date: 06/19/18 Discharge Date: Expected LOS: 2 Initial Reviewer: [email or web address] Initial Review Date: 06/19/2018 Generated: 06/19/18 1:49 pm DCPIA - Discharge Planning Initial Assessment Updated by TORRI: Eddie Harper on 06/19/18 12:44 pm * Is the patient Alert and Oriented? Yes * How many steps to enter\exit or inside your home? ELEVATOR * PCP DR. ROSA * Pharmacy [facility] * Preadmission Environment Home Alone * ADLs Independent * Equipment CPAP Nebulizer Rolling Walker Shower Chair * Other Equipment [employer] - EQUIPMENT PROVIDER * List name and contact numbers for known caregivers / representatives who currently or will assist patient after discharge: RESHMA QUINN, MIAN BECKER, * Verbal permission to speak to the caregivers and representatives has been obtained from the patient. N/A * Community resources currently utilized None * Please name any agencies selected above. NONE * Additional services required to return to the preadmission environment? No * Can the patient safely return to the preadmission environment? Yes * Has this patient been hospitalized within the prior 30 days at any hospital? No Coverage Notice Reviewer: [id number] - Gemma Lipscomb Notice Issued Date-Time: 06/17/2018 14:45 Notice Type: Medicare Outpatient Observation Notice Notice Delivered To: Patient Relationship to Patient: Self Miniature Set Builder Name: Delivery Method: HAND - Hand Delivered Racquel Days: Prior Verbal Notification: Recipient Understood Notice: Yes Recipient Signature: Med Rec Note Co-signed by Attending: Coverage Notice Comment: PATIENT IS BLIND, NOTICE EXPLAINED TO HER AND SHE VERBALIZED UNDERSTANDING. Reviewer: [id number] - Eddie Harper Notice Issued Date-Time: 06/19/2018 12:20 Notice Type: IM Discharge Notice Notice Delivered To: Patient Relationship to Patient: Miniature Set Builder Name: Delivery Method: HAND - Hand Delivered Racquel Days: Prior Verbal Notification: Recipient Understood Notice: Yes Recipient Signature: Yes Med Rec Note Co-signed by Attending: Coverage Notice Comment: Last DP export: 06/19/18 11:42 Patient Name: BAIRON JASSO Page [phone] at 1249 All edits/amendments must be made on the electronic document DICTATION DATE: 06/19/181248 CHIEF TELEPHONE OPERATOR: DEE 06/19/18 1249 RPT#: [id number] DC DATE: STATUS: ADM IN [facility] [address] [place] [address] END OF REPORT
--- NOTE | ~2018-06-16 | MORECARE ---
CASE MANAGEMENT DISCHARGE SUMMARY PATIENT: BAIRON JASSO UNIT: [id number] ADM DATE: 06/17/18 AGE: 82 : 37 SEX: F ROOM/BED: D.6174 AUTHOR: ANDREINA QUINONES PHYSICIAN: REFERRING PHYSICIAN: CRISTIAN ROSA DO DATE OF SERVICE: 06/19/18 Discharge Plan Patient Name: BAIRON JASSO Facility: [facility]:[place] : 1935 Planned Disposition: Home Anticipated Discharge Date: 06/19/18 Discharge Date: Expected LOS: 2 Initial Reviewer: [email or web address] Initial Review Date: 06/19/2018 Generated: 06/19/18 1:58 pm Comments DCP- Discharge Planning Updated by TORRI: Eddie Harper on 06/19/18 11:[address] Patient Name: BAIRON JASSO Admission Status: ER Accout number: [id number] Admission Date: 06-17-2018 : 1935 Admission Diagnosis:ESSENTIAL (PRIMARY) HYPERTENSION Attending: CRISTIAN ROSA Current LOS: 2 Anticipated DC Date: 06-19-2018 Planned Disposition: Home Primary Insurance: [facility] MEDICARE SOLUTIONS Discharge Planning Comments: CM MET WITH PT IN ROOM TO DISCUSS DISCHARGE PLANNING AND NEEDS. PT REPORTS LIVING AT HOME INDEPENDENTLY AND ALONE. PT HAS CPAP, NEBULIZER, ROLLING WALKER AND SHOWER CHAIR FROM [facility]. PT HAS NO OUTSIDE SERVICES ASSISTING IN THE HOME. CM DISCUSSED AVAILABILITY OF HOME HEALTH, REHAB SERVICES AND MEDICAL EQUIPMENT. PT DENIES DISCHARGE NEEDS, REPORTS HER SON WILL PICK HER UP FOR DISCHARGE HOME. PT REPORTS DISSATISFACTION WITH PREVIOUS HOSPITAL STAY WHERE SHE WAS "KEPT IN OBSERVATION FOR THREE DAYS"; CM EXPLAINED TO BEST OF CM ABILITY OF HOW OBSERVATION AND INPATIENT STATUS ARE DETERMINED. PT REPORTS "WELL THAT'S WATER UNDER THE BRIDGE" AND ASKED CM TO NOTIFY HER NURSE OF BACK PAIN AND WANTING SOMETHING FOR PAIN. IMPORTANT MESSAGE FROM MEDICARE PROVIDED AND EXPLAINED. CM NOTIFIED BEDSIDE NURSE. PT PLANS TO DISCHARGE HOME ALONE, DECLINED HOME HEALTH AND DENIES DISCHARGE NEEDS. PT REPORTS WILL CALL FAMILY FOR TRANSPORTATION HOME. CM TO FOLLOW AND ASSIST NEEDED. Outside Plant Field Engineer: Eddie Harper DCPIA - Discharge Planning Initial Assessment Updated by [id number]: Eddie Harper on 06/19/18 12:44 pm * Is the patient Alert and Oriented? Yes * How many steps to enter\\exit or inside your home? ELEVATOR * PCP DR. ROSA * Pharmacy [facility] * Preadmission Environment Home Alone * ADLs Independent * Equipment CPAP Nebulizer Rolling Walker Shower Chair * Other Equipment [employer] - EQUIPMENT PROVIDER * List name and contact numbers for known caregivers / representatives who currently or will assist patient after discharge: RESHMA QUINN, MIAN BECKER, * Verbal permission to speak to the caregivers and representatives has been obtained from the patient. N/A * Community resources currently utilized None * Please name any agencies selected above. NONE * Additional services required to return to the preadmission environment? No * Can the patient safely return to the preadmission environment? Yes * Has this patient been hospitalized within the prior 30 days at any hospital? No Coverage Notice Reviewer: [id number] Gilberto Lipscomb Notice Issued Date-Time: 06/17/2018 14:45 Notice Type: Medicare Outpatient Observation Notice Notice Delivered To: Patient Relationship to Patient: Self Bicycle Racer Name: Delivery Method: HAND - Hand Delivered Racquel Days: Prior Verbal Notification: Recipient Understood Notice: Yes Recipient Signature: Med Rec Note Co-signed by Attending: Coverage Notice Comment: PATIENT IS BLIND, NOTICE EXPLAINED TO HER AND SHE VERBALIZED UNDERSTANDING. Reviewer: [id number] - Eddie Harper Notice Issued Date-Time: 06/19/2018 12:20 Notice Type: IM Discharge Notice Notice Delivered To: Patient Relationship to Patient: Bicycle Racer Name: Delivery Method: HAND - Hand Delivered Racquel Days: Prior Verbal Notification: Recipient Understood Notice: Yes Recipient Signature: Yes Med Rec Note Co-signed by Attending: Coverage Notice Comment: Last DP export: 06/19/18 11:49 Patient Name: BAIRON JASSO Page [phone] at 1258 All edits/amendments must be made on the electronic document DICTATION DATE: 06/19/18 1257 ACID CONDITIONING WORKER: DEE 06/19/18 1257 RPT#: [id number] DC DATE: STATUS: ADM IN [facility] [address] [place] [address] END OF REPORT
--- NOTE | ~2018-06-16 | MORECARE ---
CASE MANAGEMENT DISCHARGE SUMMARY PATIENT: BAIRON JASSO UNIT: [id number] ADM DATE: 06/17/18 AGE: 82 : 37 SEX: F ROOM/BED: D.3202 AUTHOR: ANDREINA QUINONES PHYSICIAN: REFERRING PHYSICIAN: CRISTIAN ROSA DO DATE OF SERVICE: 06/19/18 Discharge Plan Patient Name: BAIRON JASSO [facility] [facility] 1935 Planned Disposition: Home Anticipated Discharge Date: 06/19/18 Discharge Date: Expected LOS: 2 Initial Reviewer: [email or web address] Initial Review Date: 06/19/2018 Generated: 06/19/18 1:42 pm Coverage Notice Reviewer: [id number] Gilberto Lipscomb Notice Issued Date-Time: 06/17/2018 14:45 Notice Type: Medicare Outpatient Observation Notice Notice Delivered To: Patient Relationship to Patient: Self Business Information Analyst Name: Delivery Method: HAND - Hand Delivered Racquel Days: Prior Verbal Notification: Recipient Understood Notice: Yes Recipient Signature: Med Rec Note Co-signed by Attending: Coverage Notice Comment: PATIENT IS BLIND, NOTICE EXPLAINED TO HER AND SHE VERBALIZED UNDERSTANDING. Reviewer: [id number] - Eddie Harper Notice Issued Date-Time: 06/19/2018 12:20 Notice Type: IM Discharge Notice Notice Delivered To: Patient Relationship to Patient: Business Information Analyst Name: Delivery Method: HAND - Hand Delivered Racquel Days: Prior Verbal Notification: Recipient Understood Notice: Yes Recipient Signature: Yes Med Rec Note Co-signed by Attending: Coverage Notice Comment: Patient Name: BAIRON JASSO Page [phone] at 1242 All edits/amendments must be made on the electronic document DICTATION DATE: 06/19/18 1241 WATCH DIAL MAKER: DEE 06/19/18 1241 RPT#: [id number] MD DATE: STATUS: ADM IN [facility] [address] [place] [address] END OF REPORT
[~2018-06-16 20:12] MED LIST changes: +HYDRALAZINE HCL10 MG PO
[2018-06-16] MEDS ORDERED: COZAAR50 MG PO (20:26)
[2018-06-16 20:45] VITALS: BP 191/103
[2018-06-16 21:15] VITALS: BP 218/104
[2018-06-16 21:16] LABS: BASOPHILS 0.2 % (0-2); EOSINOPHILS 3.8 % (0-7); HEMATOCRIT 40.1 % (36.0-48.0); HEMOGLOBIN 13.5 g/dL (12-16); IMMATURE GRANULOCYTES 0.1 % (0-5); MCH 30.8 pg (26.0-34.0); MCHC 33.7 g/dL (31.0-37.0); MCV 91.3 fL (80.0-100.0); MEAN PLATELET VOLUME 9.4 fL (7.4-10.4); MONOCYTES 9.7 % (2-11); NEUTROPHILS 55.2 % (40-80); PLATELET COUNT 243 10x3/uL (130-400); RBC 4.39 10x6/uL (4.00-5.40); RDW 13.9 % (11.5-14.5); WBC 8.2 10x3/uL (4.8-10.8)
[2018-06-16 21:29] LABS: ALBUMIN 3.4 g/dL (3.4-5.0); ALKALINE PHOSPHATASE 73 U/L (46-116); ALT (SGPT) 30 U/L (10-68); BILIRUBIN - TOTAL 0.22 mg/dL (0.2-1.3); CALC OSMOLALITY 275 mosm/kg (275-300); CALCIUM 9.3 mg/dL (8.5-10.1); CARBON DIOXIDE 31.1 mmol/L (21.0-32.0); CHLORIDE - SERUM 102 mmol/L (98-107); CREATININE - SERUM 0.6 mg/dL (0.6-1.3); GLUCOSE 106 mg/dL (74-106); POTASSIUM - SERUM 4.4 mmol/L (3.5-5.1); PROTEIN - SERUM 6.8 g/dL (6.4-8.2); SODIUM 138 mmol/L (136-145); UREA NITROGEN 13 mg/dL (7-18); eGFR NON AFRICAN AMERICAN > 90 mL/min (90-120)
[2018-06-16 21:33] VITALS: BP 169/86
[2018-06-16 21:58] LABS: APPEARANCE CLEAR (CLEAR); BILIRUBIN NEGATIVE (NEGATIVE); COLOR YELLOW (YELLOW); GLUCOSE NEGATIVE (NEGATIVE); KETONE NEGATIVE (NEGATIVE); NITRITE NEGATIVE (NEGATIVE); PROTEIN NEGATIVE (NEGATIVE); UROBILINOGEN NORMAL (NORMAL)
[2018-06-16 22:02] LABS: RED CELLS - URINE OCC /hpf (0-5); WHITE CELLS - URINE 0-5 /hpf (0-5)
[2018-06-16 22:03] LABS: BACTERIA FEW /hpf (NONE SEEN); EPITHELIAL CELLS 0-5 /hpf (0-5)
[2018-06-16 22:11] VITALS: BP 131/63
[2018-06-16 23:28] VITALS: BP 151/80
[2018-06-17] VITALS (7 sets, daily range): BP systolic 99–120; BP diastolic 43–68; Ht 172.7 cm; Wt 72.7 kg
[2018-06-17] MEDS ORDERED: BYSTOLIC5 MG PO ×2 (00:18→00:49)
[2018-06-17] MEDS ORDERED: VITAMIN D3400 UNI1 PO (00:18)
[2018-06-17] MEDS ORDERED: VITAMIN E200 UNI1 PO (00:19)
[2018-06-17] MEDS ORDERED: COZAAR50 MG PO (00:20)
[2018-06-17] MEDS ORDERED: BAYER CHEWABLE81 MG PO ×2 (00:21)
[2018-06-17] MEDS ORDERED: PRAVACHOL80 MG PO (00:21)
[2018-06-17 05:24] LABS: BASOPHILS 0.3 % (0-2); EOSINOPHILS 4.3 % (0-7); HEMATOCRIT 38.6 % (36.0-48.0); IMMATURE GRANULOCYTES 0.4 % (0-5); LYMPHOCYTES 24.7 % (15-50); MCH 30.4 pg (26.0-34.0); MCHC 33.7 g/dL (31.0-37.0); MCV 90.4 fL (80.0-100.0); MEAN PLATELET VOLUME 9.6 fL (7.4-10.4); MONOCYTES 12.7 % (2-11); NEUTROPHILS 57.6 % (40-80); PLATELET COUNT 235 10x3/uL (130-400); RBC 4.27 10x6/uL (4.00-5.40); WBC 7.7 10x3/uL (4.8-10.8)
[2018-06-17 05:52] LABS: ALKALINE PHOSPHATASE 57 U/L (46-116); ALT (SGPT) 27 U/L (10-68); BILIRUBIN - TOTAL 0.35 mg/dL (0.2-1.3); CALC OSMOLALITY 273 mosm/kg (275-300); CALCIUM 8.7 mg/dL (8.5-10.1); CARBON DIOXIDE 27.3 mmol/L (21.0-32.0); CHLORIDE - SERUM 103 mmol/L (98-107); CKMB 1.7 U/L (0.0-3.6); CREATINE KINASE 36 UL (21-215); CREATININE - SERUM 0.6 mg/dL (0.6-1.3); GLUCOSE 103 mg/dL (74-106); POTASSIUM - SERUM 3.9 mmol/L (3.5-5.1); PROTEIN - SERUM 6.1 g/dL (6.4-8.2); SODIUM 137 mmol/L (136-145); UREA NITROGEN 12 mg/dL (7-18); eGFR NON AFRICAN AMERICAN > 90 mL/min (90-120)
[2018-06-17 06:08] LABS: TROPONIN-I < 0.017 ng/mL (0.000-0.060)
[2018-06-18] VITALS (8 sets, daily range): BP systolic 99–162; BP diastolic 47–89
[2018-06-18 05:25] LABS: BASOPHILS 0.4 % (0-2); EOSINOPHILS 4.9 % (0-7); HEMATOCRIT 41.3 % (36.0-48.0); HEMOGLOBIN 14.2 g/dL (12-16); IMMATURE GRANULOCYTES 0.5 % (0-5); LYMPHOCYTES 33.6 % (15-50); MCH 30.9 pg (26.0-34.0); MCHC 34.4 g/dL (31.0-37.0); MEAN PLATELET VOLUME 10.4 fL (7.4-10.4); NEUTROPHILS 49.6 % (40-80); PLATELET COUNT 261 10x3/uL (130-400); RBC 4.59 10x6/uL (4.00-5.40); RDW 13.9 % (11.5-14.5); WBC 7.7 10x3/uL (4.8-10.8)
[2018-06-18 05:56] LABS: ALBUMIN 3.5 g/dL (3.4-5.0); ALKALINE PHOSPHATASE 65 U/L (46-116); ALT (SGPT) 29 U/L (10-68); CALC OSMOLALITY 269 mosm/kg (275-300); CALCIUM 8.8 mg/dL (8.5-10.1); CARBON DIOXIDE 26.2 mmol/L (21.0-32.0); CHLORIDE - SERUM 99 mmol/L (98-107); CREATININE - SERUM 0.6 mg/dL (0.6-1.3); GLUCOSE 78 mg/dL (74-106); POTASSIUM - SERUM 4.3 mmol/L (3.5-5.1); PROTEIN - SERUM 6.5 g/dL (6.4-8.2); SODIUM 136 mmol/L (136-145); UREA NITROGEN 11 mg/dL (7-18); eGFR NON AFRICAN AMERICAN > 90 mL/min (90-120)
[2018-06-19] VITALS: BP 131/71
[2018-06-19 04:00] VITALS: BP 109/53
[2018-06-19 08:30] VITALS: BP 141/74
[2018-06-19 11:28] VITALS: BP 125/75
[2018-06-19 16:48] VITALS: BP 97/46
[2018-06-19 20:00] VITALS: BP 138/65
[2018-06-20] VITALS (7 sets, daily range): BP systolic 126–174; BP diastolic 60–96
[2018-06-21] VITALS: BP 114/70
[2018-06-21 04:00] VITALS: BP 119/63
[2018-06-21 08:05] VITALS: BP 134/77
[2018-06-21 11:59] VITALS: BP 118/56
[2018-06-21 14:53] VITALS: BP 121/64
[2018-06-21 21:00] VITALS: BP 148/76
[2018-06-22] VITALS: BP 141/65
[2018-06-22 04:00] VITALS: BP 128/66
[2018-06-22 07:53] VITALS: BP 139/70
[2018-06-22] MEDS ORDERED: NORMODYNE / TR100 MG PO (08:33)
[2018-06-22 10:58] VITALS: BP 130/67
[2018-06-22 10:59] VITALS: BP 130/67
== END 2018-06-22 11:00 | disposition home or self-care (01) | DRG 305 ==
LOC: D.ER 20:12 → OBSVTIME 23:15 → D.M2 23:15
PROVIDERS: Family Medicine
DX: I16.0 Hypertensive urgency (principal); I11.0 Hypertensive heart disease with heart failure; I50.9 Heart failure, unspecified; I48.91 Unspecified atrial fibrillation; J44.9 Chronic obstructive pulmonary disease, unspecified; I25.10 Atherosclerotic heart disease of native coronary artery without angina pectoris; M81.0 Age-related osteoporosis without current pathological fracture; I71.4 Abdominal aortic aneurysm, without rupture; Z86.73 Personal history of transient ischemic attack (TIA), and cerebral infarction without residual deficits; Z87.891 Personal history of nicotine dependence

== ENCOUNTER 2018-06-22 22:07 | Observation (INO) | payer MEDICARE, MEDICAID ==
[~2018-06-22] VITALS: Ht 172.7 cm; Wt 73.0 kg
--- NOTE | ~2018-06-22 | HEMODYNAMI ---
PATIENT:BAIRON JASSO MEDICAL RECORD: [id number] : 39 [id number] ADMISSION DATE: 06/22/18 Generatedon:06/25/20189:48 Patient name: BAIRON JASSO Patient #: [id number] SSN: : Date of study: 06/25/2018 Page: Of Hemodynamic Procedure Report Patient Data Patient Demographics Procedure consent was obtained First Name: BAIRON Gender: Female Last Name: LOUISA : 1935 Middle Initial: B Age: 82 year(s) Patient #: [id number] Race: Unknown Additional ID: [id number] Contact details [address]: [address] [place] [address] State: [place] City: [place] Zip code: [address] Past Medical History Allergies Allergen Reaction Date Comments Reported Codeine 06/24/2018 Sulfa drugs 06/24/2018 Morphine 06/24/2018 Makes her nausious Other allergy 06/25/2018 SULFA, CODEINE Admission Admission Data Admission Date: 06/22/2018 Admission Time: 23:16 Admit Source: Other Room #: D.2103 Lab Results Lab Result Date: 06/24/2018 Lab Result Time: 4:54 Biochemistry Name Units Result Min Max BUN mg/dl 15 --(--*-)-- 7 18 Creatinine mg/dl 0.6 --(*---)-- 0.6 1.3 CBC Name Units Result Min Max Hematocrit % 37.3 *-(----)-- 42 54 Hemoglobin g/dl 12.6 -*(----)-- 13.5 17.5 Procedure Procedure Types Cath Procedure PCI Procedure Coronary Stent Coronary Stent Initial Procedure Description Procedure Date Procedure Date: 06/25/2018 Procedure Start Time: 9:25 Procedure End Time: 9:43 Procedure Staff Name Function Maxim Workman MD Performing Physician Cyrus Quinn RT Monitor Teresa Roper RT Scrub Satya Duval RN Nurse Procedure Data Cath Procedure Fluoroscopy Diagnostic fluoroscopy Total fluoroscopy Time: 9.5 time: 9.5 min min Diagnostic fluoroscopy Total fluoroscopy dose: 281 dose: 281 mGy mGy Contrast Material Contrast Material Type Amount (ml) Isovue 300 90 Entry Location Entry Primary Successful Side Size Upsize Upsize Entry Closure Sarah ccessful Closure Location (Fr) 1 (Fr) 2 (Fr) Remarks Device Remarks Radial Right 6 Fr Mechanical artery Short Compression Estimated blood loss: 10 ml Procedure Complications No complications Procedure Medications Medication Administration Route Dosage Oxygen etCO2 Nasal cannula 3 l/min Lidocaine 2% added to field 20 Heparin Flush Bag added to field 2 bags (1000units/500ml NS) 0.9% NaCl I.V. 100 ml/hr Radial Cocktail added to field 1 syringe (Verapomil 2mg/Nitro 400mcg/Heparin 1500units) Zofran I.V. 4 mg Versed I.V. 1 mg Fentanyl I.V. 50 mcg Heparin Bolus I.V. 4000 units Versed I.V. 1 mg Fentanyl I.V. 50 mcg Fentanyl I.V. 50 mcg Versed I.V. 0.5 mg Hemodynamics Rest HGB: 12.6 (g/dl) Heart Rate: 58 (bpm) Snapshots Pre Cath Intra NCS Post Cath Vital Signs Time Heart Resp SPO2 etCO2 NIBP Rhythm Pain Sedation Rate (ipm) (%) (mmHg) (mmHg) Status Level (bpm) 9:16:02 59 17 95 30 102/61(79) NSR 0 (11) 10(A) , No pain 9:20:13 57 18 93 0 95/52(80) NSR 0 (11) 10(A) , No pain 9:24:28 57 17 92 0 89/48(72) NSR 0 (11) 10(A) , No pain 9:28:37 82 15 93 0 88/50(71) NSR 0 (11) 9(A) , No pain 9:32:45 83 16 93 0 97/55(74) NSR 0 (11) 9(A) , No pain 9:36:59 86 18 93 0 89/47(73) NSR 0 (11) 9(A) , No pain 9:41:11 59 20 94 15 84/45(66) NSR 0 (11) 10(A) , No pain 9:46:22 59 14 94 27 90/51(62) NSR 0 (11) 10(A) , No pain Medications Time Medication Route Dose Verified Delivered Reason Note s Effectiveness by by 9:10:06 Oxygen etCO2 3 l/min Maximmonty Messerie used for Nasal Jacinta Duval RN procedure cannula 9:10:14 Lidocaine 2% added 20ml Maxim Maxim for local to vial Jacinta Workman MD anesthetic field 9:10:19 Heparin Flush added 2 bags Maxim Pan used for Bag to Jacinta Workman MD procedure (1000units/500ml field NS) 9:10:58 0.9% NaCl I.V. 100 Maximmonty Messerie Per physician ml/hr Jacinta uDval RN 9:22:04 Zofran I.V. 4 mg Maxim Hernadez Per physician Jacinta Duval RN 9:23:30 Versed I.V. 1 mg Maxim Messerie for sedation Jacinta Duval RN 9:23:36 Fentanyl I.V. 50 mcg Maxim Messerie for sedation Jacinta Duval RN 9:24:58 Radial Cocktail added 1 Maxim Pan used for (Verapomil to syringe Jacinta Workman MD procedure 2mg/Nitro field 400mcg/Heparin 1500units) 9:26:03 Heparin Bolus I.V. 4000 Maximmonty Messerie for veri fied units Jacinta Duval RN anticoagulation with dr workman 9:28:11 Versed I.V. 1 mg Maxim Buffie for sedation Jacinta Duval RN 9:28:15 Fentanyl I.V. 50 mcg Maxim Messerie for sedation Jacinta Duval RN 9:33:18 Fentanyl I.V. 50 mcg Maxim Buffie for sedation Jacinta Duval RN 9:37:38 Versed I.V. 0.5 mg Maxim Buffie for sedation Jacinta Duval RN Procedure Log Time Note 8:25:19 Signed procedure consent form obtained from patient. 8:25:21 Diagnostic Cath status Elective 8:25:23 Time tracking: Regular hours (M-F 7:00 - 5:00) 8:25:26 Plan of Care:Hemodynamics will remain stable., Cardiac rhythm will remain stable., Comfort level will be maintained., Respiratory function will remain adequate., Patient/ family verbilizes understanding of procedure., Procedure tolerated without complication., Recovers from procedure without complications.. 8:25:54 H&P Date Dictated: 06/24/2018 Within 30 days and on chart.. 8:26:38 Patient allergic to Other allergySULFA, CODEINE 8:40:37 Satya Duval RN sent for patient. Start room use. 8:50:09 Patient received from Med II to CCL 3 Alert and oriented. Tansferred to table in Supine position. 8:50:10 Warm blankets applied, and deborah hugger turned on for patient comfort. 8:50:11 Correct patient and procedure confirmed by team. 8:50:12 ECG and BP/O2 sat monitors applied to patient. 9:10:06 Oxygen 3 l/min etCO2 Nasal cannula was administered by Satya Duval RN; used for procedure; 9:10:14 Lidocaine 2% 20ml vial added to field was administered by Maxim Workman MD; for local anesthetic; 9:10:19 Heparin Flush Bag (1000units/500ml NS) 2 bags added to field was administered by Maxim Workman MD; used for procedure; 9:10:58 0.9% NaCl 100 ml/hr I.V. was administered by Satya Duval RN; Per physician; 9:14:52 Vital chart was started 9:14:53 Baseline sample Acquired. 9:14:59 Rhythm: sinus bradycardia 9:15:00 Full Disclosure recording started 9:15:02 Pre-procedure instructions explained to patient. 9:15:03 Pre-op teaching completed and patient verbalized understanding. 9:15:20 Family in patients room. 9:15:22 Patient NPO since Midnight. 9:15:28 Is the patient allergic to Iodine/contrast media? No. 9:15:29 Is patient on blood thinner?Yes 9:15:32 ACC The patient was administered the following blood thiners within the last 24 hours: ACCPlavix 9:16:45 Patient diabetic? No. 9:16:54 Previous problem with sedation/anesthesia? No ? 9:16:57 Snore? Yes 9:16:58 Sleep apnea? Yes 9:16:59 Deviated septum? No 9:17:00 Opens mouth fully? Yes 9:17:01 Sticks out tongue? Yes 9:17:09 Airway obstruction? Yes COPD 9:17:14 Dentures? Yes IN 9:20:33 Pre procedure: left dorsailis pedis pulse 1+ Palpable, but thready & weak; easily obliterated 9:20:41 Modified Alexei's test Ulnar < 7 seconds 9:20:43 Patient pain scale 0/10 ?. 9:21:52 IV started by Satya Duval RN inright forearm with a 22 gauge IV catheter with 0.9% NaCl at KVO. 9:22:04 Zofran 4 mg I.V. was administered by Satya Duval RN; Per physician; 9:22:24 IV left forearm D/C'd due to infiltration. 9:22:26 Lab results completed and on chart. 9:22:32 Right Radial & Left Groin area was prepped with chlora-prep and draped in sterile fashion 9::33 Alarms reviewed by R. N. 9::33 Sharps counted by scrub and verified by R.N. 9::34 --------ALL STOP TIME OUT------ 9::35 Final Timeout: patient, procedure, and site verified with staff and physician. All members of the team are in agreement. 9:22:37 Right Radial & Left Groin site verified by team. 9::41 Sedation plan: IV Moderate Sedation Medication:Versed, Fentanyl 9:23:30 Versed 1 mg I.V. was administered by Satya Duval RN; for sedation; 9:23:36 Fentanyl 50 mcg I.V. was administered by Satya Duval RN; for sedation; 9:24:02 Use device set Radial Dx or PCI 9:24:04 Use device set TAUTH PCI 9:24:14 ACIST Hand Control (11169) opened to sterile field. 9:24:14 ACIST Manifold (28260) opened to sterile field. 9:24:15 Tegaderm 4 x 4 (1626W) opened to sterile field. 9:24:24 ACIST Syringe (63938) opened to sterile field. 9:24:24 Medline Cath Pack ([id number]) opened to sterile field. 9:24:25 Bag Decanter (2002) opened to sterile field. 9:24:26 DIAGNOSTIC WIRE .035 260cm J wire (066235) opened to sterile field. 9:24:27 SHEATH 6Fr Prelude Radial ([id number]) opened to sterile field. 9:24:29 INFLATOR Merit BasixCompak (OL4476) opened to sterile field. 9:24:31 CHOICE PT Extra Support 182cm wire ([id number]) opened to sterile field. 9:24:46 GUIDE 6FR AR 1.0 SH catheter ([id number]) opened to sterile field. 9::58 Radial Cocktail (Verapomil 2mg/Nitro 400mcg/Heparin 1500units) 1 syringe added to field was administered by Maxim Workman MD; used for procedure; 9::58 Procedure started. 9:25:04 Local anesthetic to right radial artery with Lidocaine 2% by Maxim Workman MD.INITIAL ACCESS ONLY 9:25:12 A 6 Fr Short sheath was inserted into the Right Radial artery 9:25:13 Zero performed for pressure channel P1 9:25:16 Zero performed for pressure channel P1 9:25:26 Zero performed for pressure channel P1 9:25:45 6 Fr AR 1 SH guide catheter was inserted over the wire 9:26:03 Heparin Bolus 4000 units I.V. was administered by Satya Duval RN; for anticoagulation; verified with dr workman 9:27:23 CPTXS wire advanced. 9:28:11 Versed 1 mg I.V. was administered by Satya Duval RN; for sedation; 9:28:15 Fentanyl 50 mcg I.V. was administered by Satya Duval RN; for sedation; 9:28:40 Wire removed. 9:28:42 Guide catheter removed. 9:28:54 GUIDE 6FR HS I SH catheter (TY1DPFBS) opened to sterile field. 9:29:06 6 Fr HS 1 SH guide catheter was inserted over the wire 9:30:24 CPTXS wire advanced. 9:32:32 Wire removed. 9:32:32 Guide catheter removed. 9:32:54 GUIDE 6FR 3DRC SH catheter ([id number]) opened to sterile field. 9:33:13 6 Fr 3DRC guide catheter was inserted over the wire 9:33:18 Fentanyl 50 mcg I.V. was administered by Satya Duval RN; for sedation; 9:34:09 CPTXS wire advanced. 9:37:03 Wire advanced across lesion. 9:37:38 Versed 0.5 mg I.V. was administered by Satya Duval RN; for sedation; 9:39:11 Place stent Inflation Number: 1 A INTEGRITY RX 2.25 x 08 stent ([id number]) was prepped and advanced across the Undefined1. The stent was deployed at 21 HELEN for 0:10 (min:sec). 9:39:38 Stent catheter was removed intact over wire. 9:39:39 Wire removed. 9:39:40 Guide catheter removed. 9:39:57 TR BAND Standard ([id number]) opened to sterile field. 9:41:23 Sheath removed intact; hemostasis achieved with Mechanical Compression to the Right Radial artery. 9:41:25 Procedure ended.(Physican Out) 9:42:06 Fluoroscopy time 09.50 minutes. 9:42:10 Fluoroscopy dose: 281 mGy 9:42:10 Flurop Dose total: 281 9:42:23 Contrast amount:Isovue 300 90ml. 9:42:24 Sharps counted by scrub and verified by R.N. 9:42:25 Insertion/operative site no bleeding no hematoma. 9:42:28 TR band inflated with 10cc of air. 9:42:30 Post Procedure Pulses reassessed and unchanged 9:42:33 Post-procedure physical assessment completed. ASA score P 2 - A patient with mild systemic disease as per Maxim Workman MD. 9:42:35 Post procedure rhythm: unchanged. 9:42:38 Estimated blood loss: 10 ml 9:42:39 Post procedure instruction explained to patient.Patient verbalizes understanding. 9:42:40 Patient needs reinforcement of post procedure teaching. 9:42:46 Procedure and supply charges have been captured, reviewed, submitted and are correct. 9:42:48 Procedure Complication : No complications 9:43:43 Vital chart was stopped 9:43:43 See physician's report for complete and final results. 9:43:48 Report given to PCU. 9:43:51 Patient transfered to PCU with Bed. 9:43:54 Procedure ended. 9:43:54 Full Disclosure recording stopped 9:46:10 End room use (Document Last) Intervention Summary Intervention Notes Time ActionType Lesion and Equipment Action# Pressure Duration Attributes Used 9:39:[address] stent Undefined1 INTEGRITY RX 1 21 00:10 2.25 x 08 stent ([id number]) Device Usage Item Name Manufacture Quantity Catalog Number Hospital Part Current M inimal Lot# / Charge Number Stock Stock Serial# Code ACIST Hand Acist 1 35410 234517 665329 282951 5 Control (54969) Medical Systems Inc ACIST Manifold Acist 1 92122 677037 598084 570763 5 (08923) [employer] Inc Tegaderm 4 x 4 3M 1 1626W 189922 626087 759145 5 (1626W) ACIST Syringe Acist 1 07318 590147 599958 415633 2 0 (72695) Medical Systems Inc Medline Cath Medline 1 [id number] 371513 19353 030401 5 Pack ([id number]) Bag Decanter Microtek 1 2002S 466859 84600 733200 5 (2001S) Medical Inc. DIAGNOSTIC WIRE [place] 1 118082 265634 491678 982048 3 0 .035 260cm J wire (547250) SHEATH 6Fr Merit 1 [id number] 241817 416290 599054 5 Prelude Radial Medical ([id number]) INFLATOR Merit Merit 1 HR8950 962877 134229 863516 1 5 [employer] (OL1500) CHOICE PT Extra [place] 1 [id number] 018539 449625 484315 5 Support 182cm Scientific wire ([id number]) GUIDE 6FR AR Medtronic 1 [id number] 297470 53452 365515 1 1.0 SH catheter ([id number]) GUIDE 6FR HS I Medtronic 1 [id number] 459531 48909 558724 1 SH catheter ([id number]) GUIDE 6FR 3DRC Medtronic 1 [id number] 290514 609929 183225 1 SH catheter ([id number]) INTEGRITY RX Medtronic 1 [id number] 183017 785110 490027 5 [id number] 2.25 x 08 stent ([id number]) TR BAND Terumo 1 [id number] 187896 050958 626382 4 0 Standard ([id number]) Signature Audit Morton Stage Time Signature Unsigned Intra-Procedure 06/25/2018 Cyrus Quinn 9:47:52 AM RT(R) Signatures Monitor : Cyrus Quinn RT Signature : Date : Time : [address] [address]
--- NOTE | ~2018-06-22 | OP ---
PATIENT NAME: BAIRON JASSO MEDICAL RECORD: [id number] :39 LOCATION:D.M2 D.2103 ADMISSION DATE:06/22/18 SURGEON: EBONY EM MD DATE OF OPERATION: 06/24/2018 PROCEDURES: 1. PTCA stent left circumflex. 2. Left heart catheterization. 3. Selective coronary angiography. 4. Left ventriculogram. INDICATION: Unstable angina and coronary artery disease. PROCEDURE IN DETAIL: After informed consent was obtained and after a detailed description of the risks, benefits as well as alternative therapies, the patient elected to proceed with angiogram and angioplasty. The right femoral area was prepped and draped in normal sterile fashion. Right femoral artery was cannulated via modified Seldinger technique with placement of 6-Frisian sheath. All catheters exchanged through this sheath. FINDINGS: Left ventriculogram was performed in standard 30-degree BENNETT view, reveals good cardiac wall motion throughout all segments. Overall ejection fraction estimated 60%. SELECTIVE CORONARY ANGIOGRAPHY: 1. Left main has no significant angiographic disease. 2. Left anterior descending has previously placed stents, these are widely patent with no significant restenosis. No disease elsewise throughout the LAD or its branches. 3. Left circumflex has a previously placed stent. This is widely patent; however, after the stent, there is 80% stenosis times 2. 4. The right coronary artery has extreme pressure damping at the ostium with greater than 80% stenosis of the ostium. PTCA STENT OF THE LEFT CIRCUMFLEX: The stents used were 3.5 x 18 and 2.5 x 8, both Integrity stents. Result was 0% residual stenosis. OVERALL IMPRESSION: Successful percutaneous transluminal coronary angioplasty stent of the left circumflex going from 80% initial stenosis times 2 to 0% residual. PLAN: For PTCA stent of the RCA in the near future. TRANSINT:[id number] Voice Confirmation ID: [id number] DOCUMENT ID: [id number] EBONY EM MD at 1059 CC: CRISTIAN ROSA DO [id number] DICTATION DATE: 06/24/18 0954 SUPPLY CHAIN SPECIALIST: 06/24/18 1034 DIS IN 06/26/18 [place] [address]
--- NOTE | ~2018-06-22 | MORECARE ---
CASE MANAGEMENT DISCHARGE SUMMARY PATIENT: BAIRON JASSO UNIT: [id number] ADM DATE: 06/22/18 AGE: 82 : 37 SEX: F ROOM/BED: D.2103 AUTHOR: ANDREINA QUINONES PHYSICIAN: REFERRING PHYSICIAN: CRISTIAN ROSA DO DATE OF SERVICE: 06/24/18 Discharge Plan Patient Name: BAIRON [facility]ASS[facility] [facility] 1935 Planned Disposition: Home Anticipated Discharge Date: Discharge Date: Expected LOS: Initial Reviewer: [email or web address] Initial Review Date: 06/23/2018 Generated: 06/24/18 8:30 am Comments DCP- Discharge Planning Updated by [email or web address]: Ignacia Cervantes on 06/23/18 4:[address] LATE ENTRY 1315 CM WAS CALLED BY PRIMARY NURSE. THE PATIENT WANTED INFORMATION REGARDING OPTIONS FOR ANOTHER HOSPITAL WITH "BETTER" CARE. CM VISITED AT 1345. PATIENT WAS SITTING ON THE SIDE OF THE BED. CM HAD LIST OF CTO AND THE HOSPITALS WITH CARDIAC SERVICES IN THE IMMEDIATE AREA. SHE DID NOT WANT TO TRAVEL TO [place] BY THE TIME THE CM VISITED. SHE STATED SHE HAD SPOKEN WITH A HIGHER AUTHORITY AND SHE AND THE LORD HAD DECIDED TO STAY AT [facility] FOR NOW. SHE DECLINED THE [facility] LISTING. SHE ACTUALLY IS COGNIZANT OF ALL OF THE PROVIDERS IN THE AREA. HER PRIMARY NURSE WAS AT THE BEDSIDE. SHE HAD NO ADDITIONAL CONCERNS OR QUESTIONS AT THAT TIME. PATIENT WAS DISCHARGED AT 1030 ON 06/22/18 AND WAS READMITTED ON THE SAME DAY THRU THE ER AT 2205. SHE REPORTEDLY LIVES ALONE. SHE HAD DECLINED ANY HOME HEALTH SERVICES AT DISCHARGE. CM TO FOLLOW TO REASSESS NEEDS AND ASSIST WITH DISCHARGE IS APPROPRIATE. Last DP export: 06/23/18 5:03 p Patient Name: BAIRON JASSO Page [phone] at 0730 All edits/amendments must be made on the electronic document DICTATION DATE: 06/24/18729 REMEDIATION PROJECT ENGINEER: DEE 06/24/18729 RPT#: [id number] DC DATE: STATUS: ADM IN [facility] [address] [place] [address] END OF REPORT
--- NOTE | ~2018-06-22 | MORECARE ---
CASE MANAGEMENT DISCHARGE SUMMARY PATIENT: BAIRON JASSO UNIT: [id number] ADM DATE: 06/22/18 AGE: 82 : 37 SEX: F ROOM/BED: D.2103 AUTHOR: ANDREINA QUINONES PHYSICIAN: REFERRING PHYSICIAN: CRISTIAN ROSA DO DATE OF SERVICE: 06/23/18 Discharge Plan Patient Name: BAIRON JASSO [facility] [facility] 1935 Planned Disposition: Home Anticipated Discharge Date: Discharge Date: Expected LOS: Initial Reviewer: [email or web address] Initial Review Date: 06/23/2018 Generated: 06/23/18 6:50 pm Patient Name: BAIRON JASSO Page [phone] at 1750 All edits/amendments must be made on the electronic document DICTATION DATE: 06/23/181749 PERSONAL FINANCE INSTRUCTOR: DEE 06/23/181749 RPT#: [id number] DC DATE: STATUS: ADM IN [facility] [address] [place] [address] END OF REPORT
--- NOTE | ~2018-06-22 | CN ---
PATIENT NAME:BAIRON JASSO MEDICAL RECORD: [id number] : 39 LOCATION:D.M2 D.2103 ADMIT DATE: 06/22/18 ACCOUNT: [id number] CONSULTING PHYSICIAN: EBONY EM MD REFERRING PHYSICIAN: CRISTIAN ROSA DO DATE OF CONSULTATION: 06/23/2018 DIAGNOSES: 1. Angina. 2. Coronary artery disease. 3. Previous coronary stenting. 4. Peripheral vascular disease - abdominal aortic aneurysm. 5. Chronic obstructive pulmonary disease. 6. Smoking history. 7. Hypertension. 8. Hyperlipidemia. 9. Atrial fibrillation. HISTORY OF PRESENT ILLNESS: Ms. Jasso presented last week with malignant hypertension and chest pain. Her blood pressure was controlled. Her chest pain resolved. She again went home, had a spike in her blood pressure and had recurrent chest pain. She has a history of coronary artery disease, previous cardiac stenting, the last being approximately 3 years ago, 10 years prior to that. She has a history of atrial fibrillation, for which she is on Eliquis. 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 She as well has COPD. She has abdominal aortic aneurysm that measures 5.[address] Matos is following that. PHYSICAL EXAMINATION: GENERAL APPEARANCE: Well-nourished, well-developed, appears stated age. Level of distress, comfortable. PSYCHIATRIC: Mental status, alert, normal affect. Orientation, oriented to time, place and person. EYES: Lids and conjunctiva, noninjected. No discharge, no pallor. ENT: Lips, teeth, gums, normal dentition. Oropharynx, no cyanosis, no pallor. NECK: Carotid arteries, bilateral normal upstroke, no bruits, no thrills. JUGULAR VEINS: No jugular venous pressure or distention. CERVICAL LYMPH NODES: Nontender, nonenlarged. THYROID: Not enlarged. Nontender. No nodules. LUNGS: Respiratory effort, unlabored. CHEST: Normal curvature. No thoracic deformity. No chest wall tenderness. Percussion, resonant. Auscultation, clear. No wheezes, no rales, no rhonchi. CARDIOVASCULAR: Precordial exam, nondisplaced. No heaves or pericardial thrills. Rate and rhythm, regular. Heart sounds, normal S1, normal S2. No S3, no gallop, no rub. Systolic murmur, not heard. Diastolic murmur, not heard. EXTREMITIES: No cyanosis, no edema. Peripheral pulses, full and equal in all extremities, except as noted. No bruits appreciated. ABDOMEN: Soft, nondistended. Normal aorta. No bruit. Nontender. No masses. Liver, nontender, no hepatomegaly. Spleen, nontender, no splenomegaly. MUSCULOSKELETAL: No joint tenderness. No joint swelling. No erythema. NEUROLOGICAL: Normal gait, normal strength, normal tone. SKIN: Warm and dry. OVERALL IMPRESSION: Recurrent chest pain with hypertension. We will proceed with coronary angiography, especially due to the fact that she very well may be CONSULT REPORT [id number] BAIRON JASSO facing an operative repair of her abdominal aortic aneurysm. We will also change her medication. She was on Bystolic for years and tolerated this much better. The labetalol is not doing a good job controlling her blood pressure, it was 180 systolic this morning, her heart rate of over 100. We will place her on the Bystolic 5 mg b.i.d. to see if anything needs to be added to that. Further care depends upon the findings of the cath. TRANSINT:[id number] Voice Confirmation ID: [id number] DOCUMENT ID: [id number] EBONY EM MD at 1059 CC: [id number] DICTATION DATE: 06/23/18 1145 TURNER SPLITTER MACHINE OPERATOR: 06/23/18 1205 DIS IN 06/26/18 [place] [id number] [place] [address]
--- NOTE | ~2018-06-22 | HEMODYNAMI ---
PATIENT:BAIRON JASSO MEDICAL RECORD: [id number] : 39 LOCATION:[facility] D.2103 ADMISSION DATE: 06/22/18 Generatedon:06/24/20189:49 Patient name: BAIRON JASSO Patient #: [id number] SSN: : Date of study: 06/24/2018 Page: Of Hemodynamic Procedure Report Patient Data Patient Demographics Procedure consent was obtained First Name: BAIRON Gender: Female Last Name: LOUISA : 1935 Middle Initial: B Age: 82 year(s) Patient #: [id number] Race: Unknown Additional ID: [id number] Contact details [address]: [address] [place] [address] State: [place] City: [place] Zip code: [address] Past Medical History Allergies Allergen Reaction Date Comments Reported Codeine 06/24/2018 Sulfa drugs 06/24/2018 Morphine 06/24/2018 Makes her nausious Admission Admission Data Admission Date: 06/22/2018 Admission Time: 23:16 Admit Source: Other Room #: D.2103 Lab Results Lab Result Date: 06/24/2018 Lab Result Time: 4:54 Biochemistry Name Units Result Min Max BUN mg/dl 15 --(--*-)-- 7 18 Creatinine mg/dl 0.6 --(*---)-- 0.6 1.3 CBC Name Units Result Min Max Hematocrit % 37.3 *-(----)-- 42 54 Hemoglobin g/dl 12.6 -*(----)-- 13.5 17.5 Procedure Procedure Types Cath Procedure Diagnostic Procedure LHC LHC w/Coronaries Peripheral Cath Diagnostic Procedure Forestry Conservation Worker Peripheral Procedures Xevym-Cnjhgao-Rjc-Off Procedure Description Procedure Date Procedure Date: 06/24/2018 Procedure Start Time: 9:23 Procedure End Time: 9:48 Procedure Staff Name Function Maxim Workman MD Performing Physician Jordy Goetz RT Scrub Santa Schaffer RT Monitor Elizabeth Means RN Nurse Procedure Data Cath Procedure Fluoroscopy Diagnostic fluoroscopy Total fluoroscopy Time: 7.2 time: 7.2 min min Diagnostic fluoroscopy Total fluoroscopy dose: 583 dose: 583 mGy mGy Contrast Material Contrast Material Type Amount (ml) Isovue 370 158 Entry Location Entry Primary Successful Side Size Upsize Upsize Entry Closure Succes sful Closure Location (Fr) 1 (Fr) 2 (Fr) Remarks Device Remarks Femoral Right 5 Fr 6 Fr Vascade artery Short Closure System Estimated blood loss: 10 ml Diagnostic catheters Device Type Used For End Catheter Placement MULTIPACK 3DRC 5Fr Right Coronary catheter Angiography MULTIPACK Pigtail 5 Fr LV Angiography catheter MULTIPACK Pigtail 5 Fr Abdominal catheter aortogram with runoff MULTIPACK JL 4.0 5Fr Left Coronary catheter Angiography Procedure Complications No complications Procedure Medications Medication Administration Route Dosage 0.9% NaCl I.V. 100 ml/hr Oxygen etCO2 Nasal cannula 2 l/min Lidocaine 2% added to field 20 Heparin Flush Bag added to field 2 bags (1000units/500ml NS) Versed I.V. 2 mg Fentanyl I.V. 50 mcg Versed I.V. 0.5 mg Heparin Bolus I.V. 4000 units Integrilin (Bolus I.V. 6.8 ml 2mg/ml) Versed I.V. 0.5 mg Plavix P.O. 600 mg Hemodynamics Rest HGB: 12.6 (g/dl) Heart Rate: 97 (bpm) Snapshots Pre Cath Intra NCS Post Cath Vital Signs Time Heart Resp SPO2 etCO2 NIBP (mmHg) Rhythm Pain Sedation Rate (ipm) (%) (mmHg) Status Level (bpm) 9:08:09 96 17 99 22.3 163/92(124) NSR 0 (11) 10(A) , No pain 9:12:21 97 18 96 24.6 141/81(103) NSR 0 (11) 10(A) , No pain 9:16:37 90 10 95 27.6 119/69(95) NSR 0 (11) 10(A) , No pain 9:20:51 88 10 97 27.6 119/70(83) NSR 0 (11) 10(A) , No pain 9:25:01 87 15 97 31.3 133/75(89) NSR 0 (11) 10(A) , No pain 9:30:15 89 12 95 24.6 113/63(81) NSR 0 (11) 9(A) , No pain 9:34:27 90 13 97 35.8 122/67(91) NSR 0 (11) 9(A) , No pain 9:38:43 100 17 96 26.1 110/60(78) NSR 0 (11) 9(A) , No pain 9:42:55 94 14 97 33.5 123/69(100) NSR 0 (11) 10(A) , No pain 9:47:06 94 27 97 23.1 129/76(92) NSR 0 (11) 10(A) , No pain Medications Time Medication Route Dose Verified Delivered Reason Notes Effectiveness by by 8:47:51 0.9% NaCl I.V. 100 Maxim Elizabeth used for ml/hr Jacinta Means training intern 8:48:00 Oxygen etCO2 2 Maxim Elizabeth used for Nasal l/min Jacinta Means procedure cannula RN 8:48:06 Lidocaine 2% added 20ml Maxim Pan for local to vial Jacinta Workman MD anesthetic field 8:48:11 Heparin Flush added 2 Maxim Maxim used for Bag to bags Jacinta Workman MD procedure (1000units/500ml field NS) 9:20:42 Versed I.V. 2 mg Maxim Elizabeth for sedation Jacinta Means RN 9:20:49 Fentanyl I.V. 50 Maxim Elizabeth for sedation mcg Jacinta Means RN 9:26:56 Versed I.V. 0.5 Maxim Elizabeth for sedation mg Jacinta Means RN 9:34:22 Heparin Bolus I.V. 4000 Maxim Elizabeth for verifi ed units Jacinta Means anticoagulation with Dr. OSEI Workman 9:36:22 Integrilin I.V. 6.8 Maxim Elizabeth for wasted (Bolus 2mg/ml) ml Jacinta Means anticoagulation 3.2mL RN 9:39:16 Versed I.V. 0.5 Maxim Elizabeth for sedation mg Jacinta Means RN 9:44:32 Plavix P.O. 600 Maxim Elizabeth for mg Jacinta Means antiplatelet RN therapy Procedure Log Time Note 8:40:45 Informed consent obtained and on chart 8:40:49 Admit Source: Other 8:41:43 Diagnostic Cath status Elective 8:41:44 Time tracking: Regular hours (M-F 7:00 - 5:00) 8:41:49 Plan of Care:Hemodynamics will remain stable., Cardiac rhythm will remain stable., Comfort level will be maintained., Respiratory function will remain adequate., Patient/ family verbilizes understanding of procedure., Procedure tolerated without complication., Recovers from procedure without complications.. 8:42:11 H&P Date Dictated: 06/23/2018 Within 30 days and on chart.. 8:43:04 Lab results completed and on chart. 8:43:41 Lab Result : BUN 15 mg/dl 8:43:41 Lab Result : Creatinine 0.6 mg/dl 8:43:41 Lab Result : Hematocrit 37.3 % 8:43:41 Lab Result : Hemoglobin 12.6 g/dl 8:46:19 Santa Counts RT(R) sent for patient. Start room use. 8:47:51 0.9% NaCl 100 ml/hr I.V. was administered by Elizabeth Means RN; used for procedure; 8:48:00 Oxygen 2 l/min etCO2 Nasal cannula was administered by Elizabeth Means RN; used for procedure; 8:48:06 Lidocaine 2% 20ml vial added to field was administered by Maxim Workman MD; for local anesthetic; 8:48:11 Heparin Flush Bag (1000units/500ml NS) 2 bags added to field was administered by Maxim Workman MD; used for procedure; 9:00:57 Patient received from Pre/Post Procedure Room to CCL 1 Alert and oriented. Tansferred to table in Supine position. 9:07:03 Warm blankets applied, and deborah hugger turned on for patient comfort. 9:07:04 Correct patient and procedure confirmed by team. 9:07:05 ECG and BP/O2 sat monitors applied to patient. 9:07:06 Vital chart was started 9:07:07 Full Disclosure recording started 9:07:10 Rhythm: sinus rhythm 9:07:13 Pre-procedure instructions explained to patient. 9:07:13 Pre-op teaching completed and patient verbalized understanding. 9:07:15 Family in patients room. 9:07:24 Patient NPO since Midnight. 9:07:44 Patient allergic to Codeine 9:07:50 Patient allergic to Sulfa drugs 9:08:27 Patient allergic to MorphineMakes her nausious 9:08:40 Is the patient allergic to Iodine/contrast media? No. 9:08:42 Is patient on blood thinner?Yes 9:08:47 ACC The patient was administered the following blood thiners within the last 24 hours: Eliquis 9:10:18 Patient diabetic? No. 9:10:37 Previous problem with sedation/anesthesia? No ? 9:10:39 Snore? Yes 9:10:40 Sleep apnea? Yes 9:10:41 Deviated septum? No 9:10:41 Opens mouth fully? Yes 9:10:42 Sticks out tongue? Yes 9:10:46 Airway obstruction? Yes COPD 9:10:53 Dentures? Yes Partial in 9:10:56 Pre procedure: right dorsailis pedis pulse 2+ Normal; easily identifiable; not easily obliterated 9:10:59 Patient pain scale 0/10 ?. 9:11:06 IV patent on arrival in right forearm with 0.9% NaCl at KVO. 9:11:11 Right groin area was prepped with chlora-prep and draped in sterile fashion 9:11:12 Alarms reviewed by R. N. 9:11:12 Sharps counted by scrub and verified by R.N. 9:14:27 Baseline sample Acquired. 9:17:28 Zero performed for pressure channel P1 9:17:58 Physician paged 9:18:38 Procedure type changed to Cath procedure, Diagnostic procedure, LHC, LHC w/Coronaries, Peripheral Cath Diagnostic Procedure, Forestry Conservation Worker Peripheral Procedures, Meutt-Ivvstod-Wjw-Off 9:20:20 Final Timeout: patient, procedure, and site verified with staff and physician. All members of the team are in agreement. 9:20:22 Right groin site verified by team. 9:20:24 Physical assessment completed. ASA score P 2 - A patient with mild systemic disease as per Maxim Workman MD. 9:20:27 Sedation plan: IV Moderate Sedation Medication:Versed, Fentanyl 9:20:42 Versed 2 mg I.V. was administered by Elizabeth Means RN; for sedation; 9:20:49 Fentanyl 50 mcg I.V. was administered by Elizabeth Miguelangel RN; for sedation; 9:22:23 Use device set Femoral Dx 9:22:24 ACIST Syringe (62446) opened to sterile field. 9:22:24 Bag Decanter () opened to sterile field. 9:22:25 Medline Cath Pack ([id number]) opened to sterile field. 9:22:25 DIAGNOSTIC WIRE .035 260cm J wire (779510) opened to sterile field. 9:22:27 ACIST Hand Control (49935) opened to sterile field. 9:22:27 ACIST Manifold (63281) opened to sterile field. 9:22:27 DIAGNOSTIC Multipack 5Fr catheter set (NS2316) opened to sterile field. 9:22:28 Tegaderm 4 x 4 (1626W) opened to sterile field. 9:22:30 SHEATH Prelude 5Fr 0.035 (YXI-1X-04-035) opened to sterile field. 9:23:16 Procedure started. 9:23:19 Local anesthetic to right femoral artery with Lidocaine 2% by Maxim Workman MD.INITIAL ACCESS ONLY 9:24:20 A 5 Fr sheath was inserted into the Right Femoral artery 9:24:34 GLIDE WIRE Super Stiff Angled 260cm (XH0815) opened to sterile field. 9:25:28 SS GLIDEWIRE wire advanced. 9:26:04 TORQUE DEVICE PLASTIC .038 ( TD01) opened to sterile field. 9:26:44 A MULTIPACK 3DRC 5Fr catheter was advanced over the wire and used for Right Coronary Angiography. 9:26:56 Versed 0.5 mg I.V. was administered by Elizabeth Means RN; for sedation; 9::29 Wire removed. 9:27:43 Catheter removed. 9:29:09 A MULTIPACK Pigtail 5 Fr catheter was advanced over the wire and used for LV Angiography. 9:29:35 LV gram done using BENNETT 9:29:39 EF : 60 % 9::43 Injector settings: Ml/sec: 10, Volume: 20, 9:29:51 A MULTIPACK Pigtail 5 Fr catheter was advanced over the wire and used for Abdominal aortogram with runoff. 9:31:01 Catheter removed. 9:31:19 A MULTIPACK JL 4.0 5Fr catheter was advanced over the wire and used for Left Coronary Angiography. 9:32:46 Catheter removed. 9:32:52 Use device set TAU PCI 9:33:01 INFLATOR Merit Fifipak (GP8761) opened to sterile field. 9:33:03 CHOICE PT Extra Support 182cm wire ([id number]) opened to sterile field. 9:33:14 SHEATH 6FR Morrice (PNG057) opened to sterile field. 9:34:22 Heparin Bolus 4000 units I.V. was administered by Elizabeth Means RN; for anticoagulation; verified with Dr. Workman 9:34:37 GUIDE 6FR XBLAD 3.5 catheter ([id number]) opened to sterile field. 9:34:50 Sheath upsized to a 6 Fr Short. 9:34:56 6 Fr XBLAD 3.5 guide catheter was inserted over the wire 9:35:34 CHOICE PT ES wire advanced. 9:36:22 Integrilin (Bolus 2mg/ml) 6.8 ml I.V. was administered by Elizabeth Means RN; for anticoagulation; wasted 3.2mL 9:38:57 Place stent Inflation Number: 1 A INTEGRITY RX 3.5 x 18 stent ([id number]) was prepped and advanced across the Mid CX. The stent was deployed at 13 HELEN for 0:10 (min:sec). 9:39:09 Stent catheter was removed intact over wire. 9:39:16 Versed 0.5 mg I.V. was administered by Elizabeth Means RN; for sedation; 9:39:45 Wire removed. 9:41:41 CHOICE PT ES wire advanced. 9:42:54 Place stent Inflation Number: 1 A INTEGRITY RX 2.5 x 08 stent ([id number]) was prepped and advanced across the Dist CX. The stent was deployed at 13 HELEN for 0:08 (min:sec). 9:43:13 Stent catheter was removed intact over wire. 9:43:13 Wire removed. 9:43:14 Guide catheter removed. 9:43:24 Sheath removed intact; hemostasis achieved with Vascade Closure System to the Right Femoral artery. 9:43:28 Procedure ended.(Physican Out) 9:43:56 Fluoroscopy time 07.20 minutes. 9:44:23 VASCADE 6/7 Fr ([id number]) opened to sterile field. 9:44:32 Plavix 600 mg P.O. was administered by Elizabeth Means RN; for antiplatelet therapy; 9:44:41 Flurop Dose total: 583 9:44:41 Fluoroscopy dose: 583 mGy 9:44:45 Contrast amount:Isovue 370 158ml. 9:44:47 Sharps counted by scrub and verified by R.N. 9:44:48 Insertion/operative site no bleeding no hematoma. 9:44:51 Post-op/insertion site Right Femoral artery dressed using a 4 x 4 and Tegaderm. 9:44:54 Post right femoral artery:stable, clean and dry 9:44:55 Post Procedure Pulses reassessed and unchanged 9:44:57 Post-procedure physical assessment completed. ASA score P 2 - A patient with mild systemic disease as per Maxim Workman MD. 9:44:59 Post procedure rhythm: unchanged. 9:45:03 Estimated blood loss: 10 ml 9:45:04 Post procedure instruction explained to patient.Patient verbalizes understanding. 9:45:05 Patient needs reinforcement of post procedure teaching. 9:45:10 Procedure Complication : No complications 9:45:11 See physician's report for complete and final results. 9:46:21 Procedure and supply charges have been captured, reviewed, submitted and are correct. 9:48:05 Vital chart was stopped 9:48:07 Report given to PCU. 9:48:11 Patient transfered to PCU with Bed. 9:48:20 Procedure ended. 9:48:20 Full Disclosure recording stopped 9:48:26 End room use (Document Last) Intervention Summary Intervention Notes Time ActionType Lesion and Equipment Action# Pressure Duration Attributes Used 9:38:57 Place stent Mid CX INTEGRITY RX 1 13 00:10 3.5 x 18 stent ([id number]) 9:42:54 Place stent Dist CX INTEGRITY RX 1 13 00:08 2.5 x 08 stent ([id number]) Device Usage Item Name Manufacture Quantity Catalog Number Hospital Part Current M inimal Lot# / Charge Number Stock Stock Serial# Code ACIST Syringe Acist 1 11809 810150 290329 864944 2 0 (21439) KILTR Inc Bag Decanter Microtek 1 533455 53871 704408 5 () Medical Inc. Medline Cath Medline 1 [id number] 465602 16669 479776 5 Pack ([id number]) DIAGNOSTIC WIRE [place] 1 558087 484304 697373 861542 3 0 .035 260cm J wire (221061) ACIST Hand Acist 1 88195 771401 855234 974823 5 Control (38635) Medical Systems Inc ACIST Manifold Acist 1 27947 567597 966871 922301 5 (26941) Medical Systems Inc DIAGNOSTIC Cardinal 1 SE2494 873182 35366 531992 3 0 Multipack 5Fr Health catheter set (MY7715) Tegaderm 4 x 4 3M 1 1626W 543279 115135 973808 5 (1626W) SHEATH Prelude Merit 1 QNW-7Q-68-035 582312 578958 820289 5 5Fr 0.035 Medical (FGO-2V-04-035) GLIDE WIRE Terumo 1 AU0872 372550 067855 980760 5 Super Stiff Angled 260cm (UB2591) TORQUE DEVICE [place] 1 TD01 108429 187174 841372 5 PLASTIC .038 ( Scientific TD01) MULTIPACK 3DRC Cardinal 1 583837 5 5Fr catheter Health MULTIPACK Cardinal 1 103892 5 Pigtail 5 Fr Health catheter MULTIPACK JL Cardinal 1 716400 5 4.0 5Fr Health catheter INFLATOR Merit Merit 1 RL2232 176336 983082 337452 1 5 GroundWorkmoopvizor (XE1177) CHOICE PT Extra [place] 1 [id number] 533662 663892 668391 5 Support 182cm Scientific wire ([id number]) SHEATH 6FR Terumo 1 ASR484 115161 903623 168076 4 0 Morrice (ACF061) GUIDE 6FR XBLAD Cardinal 1 [id number] 178664 730095 257349 1 0 3.5 catheter Health (75002329) INTEGRITY RX Medtronic 1 [id number] 960177 863963 151709 5 [id number] 3.5 x 18 stent ([id number]) INTEGRITY RX Medtronic 1 [id number] 776104 710162 788525 5 [id number] 2.5 x 08 stent ([id number]) VASCADE 6/7 Fr Cardiva 1 [id number] 934677 388926 766672 5 ([id number]) Medical, Inc. Signature Audit Atco Stage Time Signature Unsigned Intra-Procedure 06/24/2018 Santa 9:49:00 AM Counts RT(R) Signatures Monitor : Santa Signature : Counts RT Date : Time : [address] [address]
--- NOTE | ~2018-06-22 | MORECARE ---
CASE MANAGEMENT DISCHARGE SUMMARY PATIENT: BAIRON JASSO UNIT: [id number] ADM DATE: 06/22/18 AGE: 82 : 37 SEX: F ROOM/BED: D.2108 AUTHOR: ANDREINA QUINONES PHYSICIAN: REFERRING PHYSICIAN: CRISTIAN ROSA DO DATE OF SERVICE: 06/23/18 Discharge Plan Patient Name: BAIRON JASSO [facility] [facility] 1935 Planned Disposition: Home Anticipated Discharge Date: Discharge Date: Expected LOS: Initial Reviewer: [email or web address] Initial Review Date: 06/23/2018 Generated: 06/23/18 7:03 pm Comments DCP- Discharge Planning Updated by [email or web address]: Ignacia Cervantes on 06/23/18 4:[address] LATE ENTRY 1315 CM WAS CALLED BY PRIMARY NURSE. THE PATIENT WANTED INFORMATION REGARDING OPTIONS FOR ANOTHER HOSPITAL WITH "BETTER" CARE. CM VISITED AT 1345. PATIENT WAS SITTING ON THE SIDE OF THE BED. CM HAD LIST OF [employer] AND CRAFTS TEACHER AND THE HOSPITALS WITH CARDIAC SERVICES IN THE IMMEDIATE AREA. SHE DID NOT WANT TO TRAVEL TO [place] BY THE TIME THE CM VISITED. SHE STATED SHE HAD SPOKEN WITH A HIGHER AUTHORITY AND SHE AND THE LORD HAD DECIDED TO STAY AT [facility] FOR NOW. SHE DECLINED THE [facility] LISTING. SHE ACTUALLY IS COGNIZANT OF ALL OF THE PROVIDERS IN THE AREA. HER PRIMARY NURSE WAS AT THE BEDSIDE. SHE HAD NO ADDITIONAL CONCERNS OR QUESTIONS AT THAT TIME. PATIENT WAS DISCHARGED AT 1030 ON 06/22/18 AND WAS READMITTED ON THE SAME DAY THRU THE ER AT 2205. SHE REPORTEDLY LIVES ALONE. SHE HAD DECLINED ANY HOME HEALTH SERVICES AT DISCHARGE. CM TO FOLLOW TO REASSESS NEEDS AND ASSIST WITH DISCHARGE IS APPROPRIATE. Last DP export: 06/23/18 4:50 p Patient Name: BAIRON JASSO Page [id number] at 1803 All edits/amendments must be made on the electronic document DICTATION DATE: 06/23/181801 DISTRIBUTION WAREHOUSE MANAGER: DEE 06/23/181801 RPT#: [id number] DC DATE: STATUS: ADM IN [facility] [address] [place] [address] END OF REPORT
--- NOTE | ~2018-06-22 | OP ---
PATIENT NAME: BAIRON JASSO MEDICAL RECORD: [id number] :[birth year] LOCATION:D.M2 D.2103 ADMISSION DATE:06/22/18 SURGEON: EBONY EM MD DATE OF OPERATION: 06/25/2018 PROCEDURES: 1. PTCA stent RCA. 2. Selective coronary angiography. INDICATION: Angina and coronary artery disease. PROCEDURE IN DETAIL: After informed consent was obtained and after a detailed description of risks, benefits as well as alternative therapies, the patient elected to proceed with angiogram and angioplasty. The right radial area was prepped and draped in normal sterile fashion. Right radial artery was cannulated via modified Seldinger technique with placement of 6-Armenian sheath. All catheters exchanged through this sheath. FINDINGS: The right coronary artery has a 90+ percent stenosis at the ostium. This was addressed with a 2.5 x 8 mm Integrity stent. Result was 0% residual stenosis. OVERALL IMPRESSION: Successful percutaneous transluminal coronary angioplasty stent of the RCA ostium going from 90% initial stenosis to 0% residual. TRANSINT:[id number] Voice Confirmation ID: [id number] DOCUMENT ID: [id number] EBONY EM MD at 1059 CC: [id number] DICTATION DATE: 06/25/1843 TRAVEL MANAGER: 06/25/18 0956 DIS IN 06/26/[address] [address]
--- NOTE | ~2018-06-22 | MORECARE ---
CASE MANAGEMENT DISCHARGE SUMMARY PATIENT: BAIRON JASSO UNIT: [id number] ADM DATE: 06/22/18 AGE: 82 : 37 SEX: F ROOM/BED: D.2103 AUTHOR: ANDREINA QUINONES PHYSICIAN: REFERRING PHYSICIAN: CRISTIAN ROSA DO DATE OF SERVICE: 06/27/18 Discharge Plan Patient Name: BAIRON JASSO Facility: [facility]:[place] : 1935 Planned Disposition: Home Anticipated Discharge Date: 06/26/18 Discharge Date: 06/26/2018 Expected LOS: 4 Initial Reviewer: [email or web address] Initial Review Date: 06/23/2018 Generated: 06/27/18 9:50 am DCP- Discharge Planning Updated by [email or web address]: Ignacia Cervantes on 06/23/18 4:[address] LATE ENTRY 1315 CM WAS CALLED BY PRIMARY NURSE. THE PATIENT WANTED INFORMATION REGARDING OPTIONS FOR ANOTHER HOSPITAL WITH "BETTER" CARE. CM VISITED AT 1345. PATIENT WAS SITTING ON THE SIDE OF THE BED. CM HAD LIST OF FISHING BOAT CAPTAIN AND THE HOSPITALS WITH CARDIAC SERVICES IN THE IMMEDIATE AREA. SHE DID NOT WANT TO TRAVEL TO [place] BY THE TIME THE CM VISITED. SHE STATED SHE HAD SPOKEN WITH A HIGHER AUTHORITY AND SHE AND THE LORD HAD DECIDED TO STAY AT [facility] FOR NOW. SHE DECLINED THE [facility] LISTING. SHE ACTUALLY IS COGNIZANT OF ALL OF THE PROVIDERS IN THE AREA. HER PRIMARY NURSE WAS AT THE BEDSIDE. SHE HAD NO ADDITIONAL CONCERNS OR QUESTIONS AT THAT TIME. PATIENT WAS DISCHARGED AT 1030 ON 06/22/18 AND WAS READMITTED ON THE SAME DAY THRU THE ER AT 2205. SHE REPORTEDLY LIVES ALONE. SHE HAD DECLINED ANY HOME HEALTH SERVICES AT DISCHARGE. CM TO FOLLOW TO REASSESS NEEDS AND ASSIST WITH DISCHARGE IS APPROPRIATE. Last DP export: 06/24/18 6:30 a Patient Name: BAIRON JASSO Page [phone] at 0850 All edits/amendments must be made on the electronic document DICTATION DATE: 06/27/18 0850 IT SERVICE TECHNICIAN: DEE 06/27/18 0850 RPT#: [id number] DC DATE:06/26/18 STATUS: DIS IN [facility] [address] [facility] [place] [address] END OF REPORT
--- NOTE | ~2018-06-22 | OP ---
PATIENT NAME: BAIRON JASSO MEDICAL RECORD: [id number] :39 LOCATION:D.M2 D.2103 ADMISSION DATE:06/22/18 SURGEON: EBONY EM MD DATE OF OPERATION: 06/24/2018 PROCEDURE: 1. Aortofemoral runoff. 2. Abdominal aortography. INDICATION: Peripheral vascular disease. PROCEDURE IN DETAIL: After informed consent was obtained and after a detailed description of the risks, benefits as well as alternative therapies, the patient elected to proceed with angiogram and aortofemoral runoff. FINDINGS: The abdominal aortography was performed. The catheter was pulled down for aortofemoral runoff. Abdominal aortography reveals a significant infrarenal abdominal aortic aneurysm. CT measures this at 5.4 cm. This seems to be accurate. There is no renal artery stenosis. RIGHT LEG: A. Iliac: The common internal and external iliacs have moderate irregularities, but no discrete flow-limiting stenosis. No stenosis greater than 70%. B. Femoral system: The common and deep femoral are widely patent. Superficial femoral has 80+ percent stenosis in the mid vessel. C. Popliteal and infrapopliteal vessels are diffusely diseased, but widely patent giving 3-vessel runoff to the foot. LEFT LEG: A. Iliac: The common internal and external iliacs have moderate irregularities, but no flow-limiting stenosis. B. Femoral system: The common and deep femoral have moderate irregularities, no flow-limiting stenosis. Superficial femoral has areas of at least 70% stenosis. C. Popliteal and infrapopliteal vessels are patent with 3-vessel runoff to the foot, although moderately diffusely diseased. OVERALL IMPRESSION: 1. SFA disease bilaterally. 2. Infrarenal abdominal aortic aneurysm as described above. TRANSINT:[id number] Voice Confirmation ID: [id number] DOCUMENT ID: [id number] EBONY EM MD at 1059 CC: [id number] DICTATION DATE: 06/24/18 0954 SOAKER SODA WORKER: 06/24/18 1034 DIS IN 06/26/18 [facility] [address] [place] [address]
[~2018-06-22 22:07] MED LIST changes: +BAYER CHEWABLE81 MG PO; +COZAAR50 MG PO; +NORMODYNE / TR100 MG PO; +PRAVACHOL80 MG PO; +VITAMIN D3400 UNI1 PO; +VITAMIN E200 UNI1 PO
[2018-06-23] VITALS (8 sets, daily range): BP systolic 102–174; BP diastolic 48–100; BMI 24.3
[2018-06-24] VITALS (12 sets, daily range): BP systolic 109–171; BP diastolic 53–94; Ht 172.7 cm; Wt 73.0 kg
[2018-06-24] MEDS ORDERED: HYDRALAZINE HCL10 MG PO (03:44)
[2018-06-24 05:08] LABS: BASOPHILS 0.2 % (0-2); EOSINOPHILS 5.8 % (0-7); HEMATOCRIT 37.3 % (36.0-48.0); HEMOGLOBIN 12.6 g/dL (12-16); IMMATURE GRANULOCYTES 0.4 % (0-5); LYMPHOCYTES 18.4 % (15-50); MCH 30.2 pg (26.0-34.0); MCHC 33.8 g/dL (31.0-37.0); MCV 89.4 fL (80.0-100.0); MEAN PLATELET VOLUME 9.3 fL (7.4-10.4); MONOCYTES 14.3 % (2-11); NEUTROPHILS 60.9 % (40-80); PLATELET COUNT 246 10x3/uL (130-400); RBC 4.17 10x6/uL (4.00-5.40); RDW 13.6 % (11.5-14.5); WBC 8.5 10x3/uL (4.8-10.8)
[2018-06-24 05:34] LABS: ALKALINE PHOSPHATASE 63 U/L (46-116); ALT (SGPT) 37 U/L (10-68); BILIRUBIN - TOTAL 0.32 mg/dL (0.2-1.3); CALC OSMOLALITY 263 mosm/kg (275-300); CALCIUM 8.5 mg/dL (8.5-10.1); CARBON DIOXIDE 27.1 mmol/L (21.0-32.0); CHLORIDE - SERUM 97 mmol/L (98-107); CREATININE - SERUM 0.6 mg/dL (0.6-1.3); GLUCOSE 90 mg/dL (74-106); POTASSIUM - SERUM 4.2 mmol/L (3.5-5.1); PROTEIN - SERUM 6.2 g/dL (6.4-8.2); SODIUM 131 mmol/L (136-145); UREA NITROGEN 15 mg/dL (7-18); eGFR NON AFRICAN AMERICAN > 90 mL/min (90-120)
[2018-06-25] VITALS (12 sets, daily range): BP systolic 86–142; BP diastolic 43–76
[2018-06-26 04:00] VITALS: BP 124/60
[2018-06-26 05:34] LABS: BASOPHILS 0.3 % (0-2); EOSINOPHILS 6.9 % (0-7); HEMATOCRIT 35.1 % (36.0-48.0); HEMOGLOBIN 11.7 g/dL (12-16); IMMATURE GRANULOCYTES 0.3 % (0-5); LYMPHOCYTES 19.7 % (15-50); MCH 30.3 pg (26.0-34.0); MCHC 33.3 g/dL (31.0-37.0); MCV 90.9 fL (80.0-100.0); MEAN PLATELET VOLUME 9.5 fL (7.4-10.4); MONOCYTES 13.7 % (2-11); NEUTROPHILS 59.1 % (40-80); PLATELET COUNT 231 10x3/uL (130-400); RBC 3.86 10x6/uL (4.00-5.40); RDW 13.7 % (11.5-14.5); WBC 7.8 10x3/uL (4.8-10.8)
[2018-06-26 05:51] LABS: CALC OSMOLALITY 261 mosm/kg (275-300); CALCIUM 7.9 mg/dL (8.5-10.1); CARBON DIOXIDE 27.4 mmol/L (21.0-32.0); CHLORIDE - SERUM 98 mmol/L (98-107); CREATININE - SERUM 0.6 mg/dL (0.6-1.3); GLUCOSE 101 mg/dL (74-106); POTASSIUM - SERUM 4.3 mmol/L (3.5-5.1); SODIUM 131 mmol/L (136-145); UREA NITROGEN 10 mg/dL (7-18); eGFR NON AFRICAN AMERICAN > 90 mL/min (90-120)
[2018-06-26 08:27] VITALS: BP 142/71
[2018-06-26] MEDS ORDERED: PLAVIX75 MG PO (12:39)
[2018-06-26] MEDS ORDERED: BYSTOLIC5 MG PO (12:42)
== END 2018-06-26 16:06 | disposition home or self-care (01) ==
LOC: D.ER 22:07 → D.M2 23:16 → OBSVTIME 23:16 → D.M2 06-26 16:06
PROVIDERS: Family Medicine; Internal Medicine Nephrology
DX: I25.119 Atherosclerotic heart disease of native coronary artery with unspecified angina pectoris (principal); I11.9 Hypertensive heart disease without heart failure; Z98.61 Coronary angioplasty status; Z87.891 Personal history of nicotine dependence; I71.4 Abdominal aortic aneurysm, without rupture; I70.203 Unspecified atherosclerosis of native arteries of extremities, bilateral legs; J44.9 Chronic obstructive pulmonary disease, unspecified; E78.5 Hyperlipidemia, unspecified; I48.91 Unspecified atrial fibrillation; Z86.73 Personal history of transient ischemic attack (TIA), and cerebral infarction without residual deficits; H54.8 Legal blindness, as defined in USA; Z91.14 Patient's other noncompliance with medication regimen; K80.80 Other cholelithiasis without obstruction

== ENCOUNTER 2019-02-25 22:41 | Emergency (ER) | payer MEDICARE, MEDICAID ==
[2018-10-17 09:26] VITALS: Ht 172.7 cm; Wt 71.4 kg
[~2019-02-25] VITALS: Ht 172.7 cm; Wt 71.4 kg
[~2019-02-25 22:41] MED LIST changes: +BETAPACE 80 MG80 MG PO; +PERCOCET 5-3251 TAB PO; +PLAVIX75 MG PO
[2019-02-25] MEDS ORDERED: BYSTOLIC2.5 MG PO (22:49)
[2019-02-25] MEDS ORDERED: LIPITOR20 MG PO (22:49)
[2019-02-26 02:32] VITALS: BP 167/86
== END 2019-02-26 02:37 | disposition home or self-care (01) ==
LOC: D.ER 22:41
DX: S49.92XA Unspecified injury of left shoulder and upper arm, initial encounter (principal); W18.31XA Fall on same level due to stepping on an object, initial encounter; Y93.89 Activity, other specified; Y92.481 Parking lot as the place of occurrence of the external cause; M79.602 Pain in left arm

== ENCOUNTER → 2019-07-10 19:44 | Outpatient (CLI) | payer MEDICARE, MEDICAID ==
[2019-02-25 22:44] VITALS: BMI 23.9
[~2019-07-10 19:44] MED LIST changes: +BYSTOLIC2.5 MG PO; +LIPITOR20 MG PO
[2019-07-10 20:02] LABS: CHOL - HDL RATIO 3.1 ratio (2.3-4.1); LDL-HDL RATIO 1.8 ratio (1.5-3.5)
== END | disposition home or self-care (01) ==
LOC: D.LABREF 19:44
PROVIDERS: ATTEND Internal Medicine Interventional Cardiology
DX: E78.5 Hyperlipidemia, unspecified (principal)

== ENCOUNTER 2020-02-23 18:27 | Emergency (ER) | payer MEDICARE, MEDICAID ==
[~2020-02-23] VITALS: Ht 172.7 cm; Wt 76.8 kg
[2020-02-23 18:42] VITALS: Ht 172.7 cm; Wt 76.8 kg
[2020-02-23 19:17] LABS: BASOPHILS 0.3 % (0-2); EOSINOPHILS 4.4 % (0-7); HEMOGLOBIN 14.7 g/dL (12-16); IMMATURE GRANULOCYTES 0.3 % (0-5); LYMPHOCYTES 23.1 % (15-50); MCH 30.1 pg (26.0-34.0); MCHC 32.7 g/dL (31.0-37.0); MCV 92.2 fL (80.0-100.0); MEAN PLATELET VOLUME 9.1 fL (7.4-10.4); MONOCYTES 7.2 % (2-11); NEUTROPHILS 64.7 % (40-80); PLATELET COUNT 217 10x3/uL (130-400); RBC 4.88 10x6/uL (4.00-5.40); RDW 13.8 % (11.5-14.5); WBC 9.3 10x3/uL (4.8-10.8)
[2020-02-23 19:26] LABS: CALC OSMOLALITY 268 mosm/kg (275-300); CALCIUM 8.9 mg/dL (8.5-10.1); CARBON DIOXIDE 31.7 mmol/L (21.0-32.0); CHLORIDE - SERUM 100 mmol/L (98-107); CREATININE - SERUM 0.8 mg/dL (0.6-1.3); GLUCOSE 103 mg/dL (74-106); POTASSIUM - SERUM 3.9 mmol/L (3.5-5.1); SODIUM 135 mmol/L (136-145); UREA NITROGEN 11 mg/dL (7-18); eGFR NON AFRICAN AMERICAN 73 mL/min (90-120)
[2020-02-23 19:35] LABS: ALBUMIN 3.6 g/dL (3.4-5.0); ALKALINE PHOSPHATASE 83 U/L (30-120); ALT (SGPT) 22 U/L (10-68); AMYLASE - SERUM 94 U/L (25-115); BILIRUBIN - TOTAL 0.47 mg/dL (0.2-1.3); LIPASE 488 U/L (73-393); PROTEIN - SERUM 7.1 g/dL (6.4-8.2); TROPONIN-I < 0.017 ng/mL (0.000-0.060)
[2020-02-23 19:40] LABS: BILIRUBIN NEGATIVE (NEGATIVE); GLUCOSE NEGATIVE (NEGATIVE); KETONE NEGATIVE (NEGATIVE); NITRITE NEGATIVE (NEGATIVE); UROBILINOGEN NORMAL (NORMAL)
[2020-02-23 19:41] LABS: WHITE CELLS - URINE 0-5 /hpf (NEGATIVE)
[2020-02-23 19:42] LABS: BACTERIA FEW /hpf (NEGATIVE); EPITHELIAL CELLS OCC /hpf (0-5)
[2020-02-23 19:49] LABS: INR 0.95 (0.85-1.17); PROTIME 12.6 SECONDS (11.6-15.0)
[2020-02-23 19:50] LABS: D-DIMER-QUANTITATIVE 0.82 ug/mLFEU (0.20-0.54)
[2020-02-23 20:02] LABS: CKMB 2.8 U/L (0.0-3.6); CREATINE KINASE 81 UL (21-215)
[2020-02-23] MEDS ORDERED: ULTRAM50 MG PO (20:59)
[2020-02-23] MEDS ORDERED: ZOFRAN4 MG PO (20:59)
[2020-02-23 21:45] VITALS: BP 170/82
== END 2020-02-23 21:33 | disposition home or self-care (01) ==
LOC: D.ER 18:27
PROVIDERS: Family Medicine
DX: R10.12 Left upper quadrant pain (principal); K80.20 Calculus of gallbladder without cholecystitis without obstruction; Z86.73 Personal history of transient ischemic attack (TIA), and cerebral infarction without residual deficits; I10 Essential (primary) hypertension; I25.2 Old myocardial infarction; I48.91 Unspecified atrial fibrillation; J44.9 Chronic obstructive pulmonary disease, unspecified

== ENCOUNTER 2020-02-25 16:34 | Inpatient (IN) | payer MEDICARE, MEDICAID ==
[~2020-02-25] VITALS: Ht 172.7 cm; Wt 78.0 kg
[~2020-02-25 16:34] MED LIST changes: +ULTRAM50 MG PO; +ZOFRAN4 MG PO
--- NOTE | 2020-02-25 17:31 | NUR ---
PT ARRIVED IN ROOM. HELPED PT GET GOWN ON AND INTO BED. PT IS ALERT AND ORIENTED X4, UP ADLIB. DENIES ANY NEEDS. COMPLETING QUICK START AND ADMISSION HISTORY. DENIES ANY NEEDS. BED IN LOWEST POSITION, BED RAILS X2, CALL LIGTH WITHIN REACH. WILL CONTINUE TO MONITOR.
--- NOTE | 2020-02-25 17:54 | NUR ---
PT STATES SHE HAS BAD VEINS, THE IV'S GO BAD QUICKLY AND DOES NOT WANT THE NURSE TO START ONE. REQUESTING TO HAVE A PICC OR PORT PLACED. BEING THAT IT IS ALMOST 1800, VASCULAR ACCESS IS NO LONGER HERE TODAY. PT HAS A SURGERY CONSULT IN, WILL SPEAK WITH SURGEON REGARDING THIS MATTER.
[2020-02-25 18:07] LABS: BASOPHILS 0.3 % (0-2); EOSINOPHILS 5.8 % (0-7); HEMATOCRIT 39.5 % (36.0-48.0); IMMATURE GRANULOCYTES 0.3 % (0-5); LYMPHOCYTES 28.9 % (15-50); MCH 29.7 pg (26.0-34.0); MCHC 32.9 g/dL (31.0-37.0); MCV 90.4 fL (80.0-100.0); MEAN PLATELET VOLUME 9.3 fL (7.4-10.4); MONOCYTES 9.3 % (2-11); NEUTROPHILS 55.4 % (40-80); PLATELET COUNT 213 10x3/uL (130-400); RBC 4.37 10x6/uL (4.00-5.40); RDW 13.5 % (11.5-14.5); WBC 7.2 10x3/uL (4.8-10.8)
[2020-02-25 18:25] LABS: ANION GAP 6.4 mmol/L (8-16); CALCIUM 8.4 mg/dL (8.5-10.1); CARBON DIOXIDE 30.3 mmol/L (21.0-32.0); CREATININE - SERUM 0.9 mg/dL (0.6-1.3); POTASSIUM - SERUM 3.7 mmol/L (3.5-5.1)
[2020-02-25 18:31] LABS: ALBUMIN 3.1 g/dL (3.4-5.0); BILIRUBIN - TOTAL 0.44 mg/dL (0.2-1.3)
[2020-02-25 18:59] VITALS: BP 149/68; BMI 26.2
--- NOTE | 2020-02-25 19:15 | NUR ---
PT REQUESTED PAIN MEDICATION. INFORMED PT THAT THE ONLY ORDERED MEDICATION IS IV AND SINCE SHE WILL NOT LET ME START AND IV I AM UNABLE TO GIVE THIS MEDICATION. SHE ASKED ABOUT TAKING A PILL, INFORMED PT THAT SINCE SHE IS NPO UNTIL SURGERY SEES HER AND MAKES A DECISION I AM UNABLE TO GIVE HER ANYTHING PO AND HAS NO PO PAIN MEDICATION ORDERED. PT STATES SHE WILL TRY TO HOLD OFF A LITTLE LONGER SO SHE DOES NOT HAVE TO HAVE AN IV PLACED.
[2020-02-25 20:00] VITALS: BP 142/72
--- NOTE | 2020-02-25 21:14 | NUR ---
PROVIDED PT WITH SPECIMEN CUP FOR URINE COLLECTION. PT AGREED TO IV FOR PAIN MEDICATIONS ONLY. MADE 2 UNSUCESSFUL ATTEMPTS. ANOTHER NURSE IS GOING TO TRY. DESPITE PT BEING NPO SHE TOOK HER PERSONAL BLOOD PRESSURE MEDICATION AND IS REFUSING TO GIVE THEM TO ME.
[2020-02-25 22:07] LABS: AMYLASE - SERUM 87 U/L (25-115); CREATINE KINASE 91 UL (21-215); LIPASE 268 U/L (73-393); MAGNESIUM - SERUM 1.8 mg/dL (1.8-2.4)
[2020-02-25 22:08] LABS: TROPONIN-I < 0.017 ng/mL (0.000-0.060)
--- NOTE | 2020-02-25 22:15 | NUR ---
UNABLE TO START IV ON PATIENT DESPITE MULTIPLE NURSES ATTEMPTING. WILL NEED VASCULAR ACCESS DES IN THE AM OR ANESTHESIA WILL HAVE TO PLACE IV.
--- NOTE | 2020-02-25 23:38 | NUR ---
IV STARTED PER Lis GREGORY TO LEFT FOREARM WITH 22 GA X 1 STICK. PT STATES SHE TOLD HER HOME BP MED, ZOFRAN, AND TRAMADOL. INSTRUCTED PT NOT TO TAKE ANYMORE HOME MEDICATIONS. STATED SHE WOULD NOT. STATES SHE WILL REST NOW AND LET ME KNOW IF NEEDING ANY IV PAIN MEDS LATER. CALL LIGHT IN REACH
[2020-02-26] VITALS: BP 154/75
[2020-02-26 00:10] LABS: BILIRUBIN NEGATIVE (NEGATIVE); GLUCOSE NEGATIVE (NEGATIVE); KETONE NEGATIVE (NEGATIVE); NITRITE NEGATIVE (NEGATIVE); SPECIFIC GRAVITY 1.005 (1.005-1.020); UROBILINOGEN NORMAL (NORMAL)
[2020-02-26 02:12] LABS: CKMB 2.8 U/L (0.0-3.6); CREATINE KINASE 93 UL (21-215)
[2020-02-26 02:13] LABS: TROPONIN-I < 0.017 ng/mL (0.000-0.060)
[2020-02-26 04:00] VITALS: BP 109/51
--- NOTE | 2020-02-26 04:55 | NUR ---
PT HAS RECIEVED PAIN MEDS X 2 THIS SHIFT WITH STATED RELIEF. HAS NO COMPLAINTS AT PRESENT. REMAINS NPO. CALL LIGHT IN REACH
[2020-02-26 08:00] VITALS: BP 157/70
[2020-02-26 08:13] LABS: APTT 36.1 SECONDS (22.8-39.4); INR 1.01 (0.85-1.17); PROTIME 13.3 SECONDS (11.6-15.0)
[2020-02-26 08:26] LABS: BASOPHILS 0.3 % (0-2); EOSINOPHILS 3.5 % (0-7); HEMATOCRIT 41.7 % (36.0-48.0); HEMOGLOBIN 13.5 g/dL (12-16); IMMATURE GRANULOCYTES 0.3 % (0-5); LYMPHOCYTES 20.4 % (15-50); MCH 29.9 pg (26.0-34.0); MCHC 32.4 g/dL (31.0-37.0); MONOCYTES 9.1 % (2-11); NEUTROPHILS 66.4 % (40-80); PLATELET COUNT 215 10x3/uL (130-400); RBC 4.51 10x6/uL (4.00-5.40); RDW 13.8 % (11.5-14.5); WBC 7.4 10x3/uL (4.8-10.8)
[2020-02-26 08:29] LABS: MCV 92.5 fL (80.0-100.0)
[2020-02-26 08:30] LABS: ALKALINE PHOSPHATASE 70 U/L (30-120); ALT (SGPT) 18 U/L (10-68); BILIRUBIN - TOTAL 0.36 mg/dL (0.2-1.3); CALC OSMOLALITY 268 mosm/kg (275-300); CALCIUM 8.6 mg/dL (8.5-10.1); CARBON DIOXIDE 29.7 mmol/L (21.0-32.0); CHLORIDE - SERUM 104 mmol/L (98-107); CREATINE KINASE 83 UL (21-215); CREATININE - SERUM 0.8 mg/dL (0.6-1.3); GLUCOSE 89 mg/dL (74-106); MAGNESIUM - SERUM 1.8 mg/dL (1.8-2.4); PROTEIN - SERUM 6.2 g/dL (6.4-8.2); SODIUM 136 mmol/L (136-145); TROPONIN-I < 0.017 ng/mL (0.000-0.060); UREA NITROGEN 7 mg/dL (7-18); eGFR NON AFRICAN AMERICAN 73 mL/min (90-120)
--- NOTE | 2020-02-26 11:00 | NUR ---
TO OR VIA BED.
[2020-02-26 12:00] VITALS: BP 128/68
--- NOTE | 2020-02-26 12:24 | NUR ---
1224 PATIENT AROUSABLE, OPA DISCONTINUED, MAINTAINING PATENT AIRWAY
[2020-02-26 12:55] VITALS: Ht 172.7 cm; Wt 78.0 kg
--- NOTE | 2020-02-26 12:56 | NUR ---
RETURNED TO ROOM VIA BED FROM SURGERY. ALERT AND ANSWERING QUESTIONS CORRECTLY. V/S 98.6 65 18 128/68 94%. 02 ON PER N/C AT 2L/M IV N/S PATENT TO RIGHT WRIST AT 70 CC/HR. INCISIONS X 4 C/D/I WITH STERISTRIPS IN PLACE. DENIES ANY PAIN AT THIS TIME AND NO REQUESTS VOICED.
[2020-02-26 16:00] VITALS: BP 137/63
--- NOTE | 2020-02-26 17:25 | NUR ---
ASSISTED UP TO BATHROOM AND VOIDED QS. DENIES ANY PAIN. DRESSING WITH SMALL AMT BLD CLEANED AND COVERING BANDAGES APPLIED.
[2020-02-26 20:00] VITALS: BP 114/51
--- NOTE | 2020-02-26 20:00 | NUR ---
PATIENT IS RESTING IN BED WATCHING TV. NO S/S OF ACUTE DISTRESS. NO C/O AT THIS TIME. PATIENT HAS IV IN RIGHT WRIST, AND REFUSED TO HAVE IT TURNED ON BECAUSE "I'M GOING HOME TOMORROW AND I CAN'T SLEEP WITH IT ON.". IV IS SALINE LOC. IV IS PATIENT WITHOUT REDNESS, SWELLING, OR TENDERNESS. PATIENT HAS TELEMETRY: 73 NORMAL SINUS. PATIENT HAS 3 LAP SITES ON BELLY FROM PROCEDURE DONE TODAY. ALL BANDAIDS ARE C/D/I. PATIENT IS UP WITH ASSIST TO THE BATHROOM. CALL LIGHT WITHIN REACH. WILL CONTINUE TO MONITOR.
[2020-02-27] VITALS: BP 124/54
--- NOTE | 2020-02-27 00:37 | NUR ---
PATIENT IS VERY AGITATED STATING "YOU GUYS HAVE MESSED UP ALL OF MY MEDICATION." AND SHE ALSO ACCUSED A NURSE OF STEALING HER MEDICATIONS THAT SHE LATER FOUDN INSIDE HER PURSE. PATIENT STATED, "I'M SORRY BUT I DON'T THINK THAT A AQUARIST CAN HANDLE THIS. IS THERE A NURSE THAT IS REGISTERED ON THE FLOOR." PATIENT THEN REQUESTED TO SIMPLY SEE THE CHARGE NURSE. CHARGE NURSE WENT IN THERE AND BERTHA CONTRERAS WAS CALLED TO TRY AND CHANGE HER MEDS AROUND. PATIENT STILL REFUSED IV FLUIDS AT THIS TIME.
[2020-02-27 05:39] LABS: BASOPHILS 0.1 % (0-2); EOSINOPHILS 0 % (0-7); HEMATOCRIT 36.1 % (36.0-48.0); HEMOGLOBIN 11.9 g/dL (12-16); IMMATURE GRANULOCYTES 0.1 % (0-5); MCH 29.8 pg (26.0-34.0); MEAN PLATELET VOLUME 9.3 fL (7.4-10.4); MONOCYTES 14.3 % (2-11); NEUTROPHILS 68.5 % (40-80); PLATELET COUNT 230 10x3/uL (130-400); RDW 13.8 % (11.5-14.5)
[2020-02-27 05:42] LABS: MCV 90.3 fL (80.0-100.0); WBC 10.1 10x3/uL (4.8-10.8)
[2020-02-27 06:05] LABS: ALBUMIN 2.7 g/dL (3.4-5.0); ANION GAP 8.9 mmol/L (8-16); BILIRUBIN - TOTAL 0.6 mg/dL (0.2-1.3); CALCIUM 7.8 mg/dL (8.5-10.1); CARBON DIOXIDE 26.9 mmol/L (21.0-32.0); CREATININE - SERUM 0.8 mg/dL (0.6-1.3); MAGNESIUM - SERUM 1.7 mg/dL (1.8-2.4); POTASSIUM - SERUM 3.8 mmol/L (3.5-5.1); PROTEIN - SERUM 5.5 g/dL (6.4-8.2)
--- NOTE | 2020-02-27 07:27 | NUR ---
PT SITTRING ON SIDE OF BED STATES SHE IS READY TO BE DC, EXPLAINED THAT DR'S HAVE NOT MADE ROUNDS YET, PT HAS 4 LAPSITES. ONE ON RT SIDE PT STATED WAS "ITCHING SO I SCRATCHED AND PULLED OFF A STRIP, DIDN'T REALIZE IT WAS ONE OF THE SITES" CLEANED SITE WITH ALCOHOL PAD, SITE IS A LITTLE RAISED AND HARD WILL CONTINUE TO MONITOR, PT STATED SHE HAS A PATCH ON THE BACK OF EAR ALSO, EXPLAINED THAT WE USUALLY PUT A PATCH BEHIND EAR FOR NAUSEA WHEN IN SURGERY, PT STATED PATCH WAS PLACED WHILE IN ROOM. NO OTHER NEEDS VOICED AT THIS TIME. CONTINUE WITH PLAN OF CARE
[2020-02-27 08:00] VITALS: BP 128/65
[2020-02-27] MEDS ORDERED: ULTRAM50 MG PO (08:22)
--- NOTE | 2020-02-27 09:38 | NUR ---
PULLED PT PAIN MEDICATION WITH MORNING MEDS ANMD PT CHANGED HER MIND, WILL WASTE PAIN MEDICATION, NO OTHER NEEDS AT THIS TIME. CONTINUE WITH PLAN OF CARE
--- NOTE | 2020-02-27 11:31 | MORECARE ---
CASE MANAGEMENT DISCHARGE SUMMARY PATIENT: BAIRON JASSO UNIT: [id number] ADM DATE: 02/25/20 AGE: 84 : 37 SEX: F ROOM/BED: D.2237 AUTHOR: ANDREINA QUINONES PHYSICIAN: REFERRING PHYSICIAN: CRISTIAN ROSA DO DATE OF SERVICE: 02/27/20 Discharge Plan Patient Name: BAIRON JASSO Facility: [facility]:[place] : 1935 Planned Disposition: Home or Self Care Anticipated Discharge Date: Discharge Date: Expected LOS: Initial Reviewer: [email or web address] Initial Review Date: 02/25/2020 Generated: 02/27/20 12:31 pm Comments DCP- Discharge Planning Updated by [email or web address]: Daniella Christy on 02/27/20 10:[address] Patient Name: BAIRON JASSO Admission Status: Urgent Accout number: [id number] Admission Date: 02-25-2020 : 1935 Admission Diagnosis: Attending: CRISTIAN ROSA Current LOS: 2 Anticipated DC Date: Planned Disposition: Home or Self Care Primary Insurance: [facility] [employer] Discharge Planning Comments: CM met with patient to complete initial dc planning assessment. CM educated patient on the CM role and verbal consent given by patient to complete assessment. Patient lives at home alone where she is independent with her care. At discharge patient plans to return home and feels this is a safe discharge. CM discussed availability of home health, rehab services, and medical equipment. She said her son will be her rolloff driver home. She uses a CPAP at home. Patient denied known discharge needs at this time. CM will continue to follow and will assist as needed with dc plans/needs. Waste And Batting Waste Chopper: Daniella Christy DCPIA - Discharge Planning Initial Assessment Updated by [email or web address]: Daniella Christy on 02/27/20 11:29 am * Is the patient Alert and Oriented? Yes * How many steps to enter\exit or inside your home? elevator * PCP [facility] * [facility] * Preadmission Environment Home Alone * ADLs Independent * Equipment CPAP * List name and contact numbers for known caregivers / representatives who currently or will assist patient after discharge: JEAN MARIE BECKER [phone] * Verbal permission to speak to the caregivers and representatives has been obtained from the patient. N/A * Community resources currently utilized None * Additional services required to return to the preadmission environment? No * Can the patient safely return to the preadmission environment? Yes * Has this patient been hospitalized within the prior 30 days at any hospital? No Patient Name: BAIRON JASSO Page [id number] at 1131 All edits/amendments must be made on the electronic document DICTATION DATE: 02/27/20 113 COOLING TOWER TECHNICIAN: DEE 02/27/20 113 RPT#: [id number] DC DATE: STATUS: ADM IN [facility] [address] [place] [address] END OF REPORT
[2020-02-27] MEDS ORDERED: ZOFRAN4 MG PO (11:49)
--- NOTE | 2020-02-28 09:33 | MORECARE ---
CASE MANAGEMENT DISCHARGE SUMMARY PATIENT: BAIRON JASSO UNIT: [id number] ADM DATE: 02/25/20 AGE: 84 : 37 SEX: F ROOM/BED: D.2237 AUTHOR: ANDREINA QUINONES PHYSICIAN: REFERRING PHYSICIAN: CRISTIAN ROSA DO DATE OF SERVICE: 02/28/20 Discharge Plan Patient Name: BAIRON JASSO Facility: [facility]:[place] : 1935 Planned Disposition: Home or Self Care Anticipated Discharge Date: Discharge Date: 02/27/2020 Expected LOS: Initial Reviewer: [email or web address] Initial Review Date: 02/25/2020 Generated: 02/28/20 10:32 am DCP- Discharge Planning Updated by [email or web address]: Daniella Christy on 02/27/20 10:[address] Patient Name: BAIRON JASSO Admission Status: Urgent Accout number: [id number] Admission Date: 02-25-2020 : 1935 Admission Diagnosis: Attending: CRISTIAN ROSA Current LOS: 2 Anticipated DC Date: Planned Disposition: Home or Self Care Primary Insurance: [facility] MEDICARE SOLUTIONS Discharge Planning Comments: CM met with patient to complete initial dc planning assessment. CM educated patient on the CM role and verbal consent given by patient to complete assessment. Patient lives at home alone where she is independent with her care. At discharge patient plans to return home and feels this is a safe discharge. CM discussed availability of home health, rehab services, and medical equipment. She said her son will be her superintendent drivers home. She uses a CPAP at home. Patient denied known discharge needs at this time. CM will continue to follow and will assist as needed with dc plans/needs. Disease Management Nurse: Daniella Christy DCPIA - Discharge Planning Initial Assessment Updated by [email or web address]: Daniella Christy on 02/27/20 11:29 am * Is the patient Alert and Oriented? Yes * How many steps to enter\exit or inside your home? elevator * PCP [facility] * [facility] * Preadmission Environment Home Alone * ADLs Independent * Equipment CPAP * List name and contact numbers for known caregivers / representatives who currently or will assist patient after discharge: JEAN MARIE BECKER [phone] * Verbal permission to speak to the caregivers and representatives has been obtained from the patient. N/A * Community resources currently utilized None * Additional services required to return to the preadmission environment? No * Can the patient safely return to the preadmission environment? Yes * Has this patient been hospitalized within the prior 30 days at any hospital? No Last DP export: 02/27/20 10:31 a Patient Name: BAIRON JASSO Page 24515 at 0933 All edits/amendments must be made on the electronic document DICTATION DATE: 02/28/20932 MOTION AND TIME STUDY TEACHER: DEE 02/28/20932 RPT#: [id number] DC DATE:02/27/20 STATUS: DIS IN [facility] [address] [place] [address] END OF REPORT
== END 2020-02-27 12:52 | disposition home or self-care (01) | DRG 418 ==
LOC: D.SDCHOLD 16:34 → D.MS 16:34
PROVIDERS: Family Medicine Adult Medicine; Surgery; ADMIT Family Medicine; ATTEND Family Medicine
PROC: 0FT44ZZ Resection of Gallbladder, Percutaneous Endoscopic Approach (ICD-10-PCS; principal; 2020-02-26 11:30)
DX: K80.20 Calculus of gallbladder without cholecystitis without obstruction (principal); E87.1 Hypo-osmolality and hyponatremia; I48.20 Chronic atrial fibrillation, unspecified; I10 Essential (primary) hypertension; I25.10 Atherosclerotic heart disease of native coronary artery without angina pectoris; I71.4 Abdominal aortic aneurysm, without rupture; E78.5 Hyperlipidemia, unspecified; I73.9 Peripheral vascular disease, unspecified; J44.9 Chronic obstructive pulmonary disease, unspecified; M19.90 Unspecified osteoarthritis, unspecified site; E55.9 Vitamin D deficiency, unspecified; K57.90 Diverticulosis of intestine, part unspecified, without perforation or abscess without bleeding; G89.29 Other chronic pain; K82.8 Other specified diseases of gallbladder

== ENCOUNTER → 2020-06-08 12:48 | Outpatient (CLI) | payer MEDICARE, MEDICAID ==
[2020-02-26 12:55] VITALS: BMI 26.1
== END | disposition home or self-care (01) ==
LOC: D.US 12:48
PROVIDERS: ATTEND Family Medicine
DX: G45.9 Transient cerebral ischemic attack, unspecified (principal)

== ENCOUNTER 2020-11-02 18:31 | Emergency (ER) | payer MEDICARE, MEDICAID ==
[~2020-11-02] VITALS: Ht 172.7 cm; Wt 77.3 kg
[2020-11-02 18:49] VITALS: Ht 172.7 cm; Wt 77.3 kg
[2020-11-02] MEDS ORDERED: FLUTICASONE PRO16 GM (18:52)
[2020-11-02 19:17] LABS: BASOPHILS 0.3 % (0-2); EOSINOPHILS 4.6 % (0-7); HEMATOCRIT 44.1 % (36.0-48.0); HEMOGLOBIN 14.5 g/dL (12-16); IMMATURE GRANULOCYTES 0.1 % (0-5); LYMPHOCYTE ABS# 2.15 10x3/uL (1.18-3.74); MCH 30.3 pg (26.0-34.0); MCHC 32.9 g/dL (31.0-37.0); MCV 92.1 fL (80.0-100.0); MONOCYTES 9.8 % (2-11); NEUTROPHIL ABS# 4.63 10x3/uL (1.56-6.13); NEUTROPHILS 58.2 % (40-80); PLATELET COUNT 197 10x3/uL (130-400); RBC 4.79 10x6/uL (4.00-5.40); RDW 13.3 % (11.5-14.5)
[2020-11-02 19:31] LABS: APTT 31.7 SECONDS (22.8-39.4); INR 1.04 (0.85-1.17); PROTIME 12.5 SECONDS (11.6-15.0)
[2020-11-02 19:32] LABS: CALC OSMOLALITY 273 mosm/kg (275-300); CALCIUM 9.1 mg/dL (8.5-10.1); CARBON DIOXIDE 30.8 mmol/L (21.0-32.0); CHLORIDE - SERUM 102 mmol/L (98-107); CREATININE - SERUM 0.7 mg/dL (0.6-1.3); GLUCOSE 105 mg/dL (74-106); POTASSIUM - SERUM 4.5 mmol/L (3.5-5.1); SODIUM 137 mmol/L (136-145); UREA NITROGEN 12 mg/dL (7-18); eGFR NON AFRICAN AMERICAN 85 mL/min (90-120)
[2020-11-02 19:48] LABS: ALBUMIN 3.3 g/dL (3.4-5.0); ALKALINE PHOSPHATASE 83 U/L (30-120); ALT (SGPT) 31 U/L (10-68); BILIRUBIN - TOTAL 0.36 mg/dL (0.2-1.3); CREATINE KINASE 106 UL (21-215); MAGNESIUM - SERUM 1.8 mg/dL (1.8-2.4); PRO BNP 350 pg/mL (0-450); PROTEIN - SERUM 6.6 g/dL (6.4-8.2); THYROID STIMULATING HORMONE 2.74 uIU/mL (0.36-3.74); TROPONIN-I < 0.017 ng/mL (0.000-0.060)
[2020-11-02 22:03] LABS: BILIRUBIN NEGATIVE (NEGATIVE); KETONE NEGATIVE (NEGATIVE); NITRITE NEGATIVE (NEGATIVE); UROBILINOGEN NORMAL mg/dL (< 2)
[2020-11-02 22:09] LABS: BACTERIA MODERATE HPF (NONE SEEN); SQUAMOUS EPITHELIAL OCC HPF (0-4); WHITE CELLS - URINE 0-5 HPF (0-4)
[2020-11-02] MEDS ORDERED: MACROBID100 MG PO (22:56)
[2020-11-02] MEDS ORDERED: CLONIDINE HCL0.1 MG PO (23:02)
[2020-11-02 23:40] VITALS: BP 135/63
== END 2020-11-02 23:41 | disposition home or self-care (01) ==
LOC: D.ER 18:31
PROVIDERS: Family Medicine
DX: R07.9 Chest pain, unspecified (principal); R51.9 Headache, unspecified; I10 Essential (primary) hypertension; N39.0 Urinary tract infection, site not specified; J44.9 Chronic obstructive pulmonary disease, unspecified; Z86.73 Personal history of transient ischemic attack (TIA), and cerebral infarction without residual deficits

== ENCOUNTER → 2021-02-09 16:42 | Outpatient (CLI) | payer MEDICARE, MEDICAID ==
[2020-11-02 18:49] VITALS: BMI 25.9
[~2021-02-09 16:42] MED LIST changes: +CLINDAMYCIN HC300 MG PO; +CLONIDINE HCL0.1 MG PO; +COREG6.25 MG PO; +FLUTICASONE PRO16 GM; +LANOXIN125 MCG PO; +LIPITOR40 MG PO; +MACROBID100 MG PO
== END | disposition home or self-care (01) ==
LOC: D.US 16:30
PROVIDERS: ATTEND Nurse Practitioner Family
DX: R60.0 Localized edema (principal)

== ENCOUNTER 2021-02-10 12:06 | Inpatient (IN) | payer MEDICARE, MEDICAID ==
[~2021-02-10] VITALS: Ht 170.2 cm; Wt 74.8 kg
[~2021-02-10 12:06] MED LIST changes: -CLINDAMYCIN HC300 MG PO; -COREG6.25 MG PO; -LANOXIN125 MCG PO; -LIPITOR40 MG PO
[2021-02-10] MEDS ORDERED: LANOXIN125 MCG PO (12:38)
[2021-02-10] MEDS ORDERED: CLINDAMYCIN HC300 MG PO (12:40)
[2021-02-10] MEDS ORDERED: COREG6.25 MG PO (12:41)
[2021-02-10] MEDS ORDERED: BAYER CHEWABLE81 MG PO (12:41)
[2021-02-10] MEDS ORDERED: LIPITOR40 MG PO (12:42)
--- NOTE | 2021-02-10 13:00 | NUR ---
PT REFUSES BED ALARM AT THIS TIME. PT EDUCATED OF FALL RISKS AND SAFETY PRECAUTIONS. PT VERBALIZES UNDERSTANDING AND IS AAO X 4. PT SIGNS RELEASE OF RESPONSIBILITY FOR BED/CHAIR ALARM. PT DENIES FURTHER QUESTIONS/CONCERNS AT THIS TIME. BED IS IN THE LOWEST POSITION. CALL LIGHT AND BEDSIDE TABLE ARE WITHIN REACH. SIDE RAILS X 2. ROOM CLOSE TO NURSE STATION. WILL CONT TO MONITOR.
[2021-02-10 13:42] LABS: BASOPHILS 1.1 % (0-2); EOSINOPHILS 4.6 % (0-7); HEMATOCRIT 44.9 % (36.0-48.0); HEMOGLOBIN 14.9 g/dL (12-16); LYMPHOCYTES 25.7 % (15-50); MCH 29.9 pg (26.0-34.0); MCHC 33.1 g/dL (31.0-37.0); MCV 90.4 fL (80.0-100.0); MEAN PLATELET VOLUME 7.3 fL (7.4-10.4); MONOCYTES 8.6 % (2-11); RBC 4.96 10x6/uL (4.00-5.40); RDW 13.7 % (11.5-14.5); WBC 9.3 10x3/uL (4.8-10.8)
[2021-02-10 13:43] LABS: ALBUMIN 3.6 g/dL (3.4-5.0); ALKALINE PHOSPHATASE 100 U/L (30-120); ALT (SGPT) 24 U/L (10-68); BILIRUBIN - TOTAL 0.33 mg/dL (0.2-1.3); CALC OSMOLALITY 269 mosm/kg (275-300); CARBON DIOXIDE 30.3 mmol/L (21.0-32.0); CHLORIDE - SERUM 99 mmol/L (98-107); CREATININE - SERUM 0.7 mg/dL (0.6-1.3); GLUCOSE 113 mg/dL (74-106); MAGNESIUM - SERUM 1.8 mg/dL (1.8-2.4); POTASSIUM - SERUM 3.8 mmol/L (3.5-5.1); PRO BNP 391 pg/mL (0-450); PROTEIN - SERUM 7.2 g/dL (6.4-8.2); SODIUM 135 mmol/L (136-145); UREA NITROGEN 9 mg/dL (7-18); eGFR NON AFRICAN AMERICAN 85 mL/min (90-120)
[2021-02-10 13:49] LABS: PLATELET COUNT 322 10x3/uL (130-400)
--- NOTE | 2021-02-10 13:59 | NUR ---
22G PIV TO RIGHT FA X 1 ATTEMPT. PT TOLERATED WELL.
[2021-02-10 14:48] VITALS: BP 208/94; BMI 25.9
--- NOTE | 2021-02-10 15:23 | NUR ---
HOME MEDS RESTARTED PER WRITTEN ORDER FROM DR ROSA
[2021-02-10 15:30] LABS: BILIRUBIN NEGATIVE (NEGATIVE); KETONE NEGATIVE mg/dL (< 1+); NITRITE NEGATIVE (NEGATIVE); PH 6.5 (5.0-8.0); UROBILINOGEN NORMAL mg/dL (< 2)
--- NOTE | 2021-02-10 15:37 | NUR ---
PT STATES "I WILL ONLY TAKE CARVEDILOL AT 10:00 IN THE MORNING AND 10:00 IN THE EVENING. THAT IS HOW IT WORKS AND THAT IS HOW I TAKE IT AT HOME". JANETH IN PHARMACY NOTIFIED AND WILL CHANGE ORDER PER PT REQUEST.
--- NOTE | 2021-02-10 17:12 | NUR ---
TELEMETRY NOTIFIED OF NEED FOR MONITOR.
[2021-02-10 17:39] VITALS: BP 152/77
--- NOTE | 2021-02-10 19:26 | NUR ---
20G PIV TO LEFT FA X [address] OF PIV PLACEMENT,
--- NOTE | 2021-02-10 19:30 | NUR ---
RECEIVED BEDSIDE REPORT. PT LAYING IN BED A&O X4. PIV TO LEFT FOREARM, PATENT AND SL, NO REDNESS OR SWELLING. TELEMETRY IN PLACE, 77SR. REDNESS AND SWELLING TO BILAT LOWER EXTREMITIES. PT ABLE TO AMBULATE AD BRIAN. EDUCATED PT ON CL AND NEEDS, VERBALIZED UNDERSTANDING. BED LOW, CL IN REACH.
[2021-02-10 20:00] VITALS: BP 135/80
[2021-02-11] VITALS: BP 151/70
[2021-02-11 04:00] VITALS: BP 148/67
[2021-02-11 06:04] LABS: BASOPHILS 0.4 % (0-2); EOSINOPHILS 4.6 % (0-7); HEMATOCRIT 40.5 % (36.0-48.0); HEMOGLOBIN 13.5 g/dL (12-16); MCH 29.9 pg (26.0-34.0); MCHC 33.5 g/dL (31.0-37.0); MCV 89.3 fL (80.0-100.0); MEAN PLATELET VOLUME 7.6 fL (7.4-10.4); MONOCYTES 9.3 % (2-11); NEUTROPHILS 59.7 % (40-80); PLATELET COUNT 290 10x3/uL (130-400); RBC 4.53 10x6/uL (4.00-5.40); RDW 13.8 % (11.5-14.5); WBC 8.4 10x3/uL (4.8-10.8)
[2021-02-11 07:20] LABS: ALKALINE PHOSPHATASE 70 U/L (30-120); ALT (SGPT) 26 U/L (10-68); BILIRUBIN - TOTAL 0.32 mg/dL (0.2-1.3); CALC OSMOLALITY 275 mosm/kg (275-300); CALCIUM 8.6 mg/dL (8.5-10.1); CARBON DIOXIDE 30.3 mmol/L (21.0-32.0); CHLORIDE - SERUM 101 mmol/L (98-107); CREATININE - SERUM 0.7 mg/dL (0.6-1.3); GLUCOSE 113 mg/dL (74-106); POTASSIUM - SERUM 3.3 mmol/L (3.5-5.1); PROTEIN - SERUM 5.9 g/dL (6.4-8.2); SODIUM 138 mmol/L (136-145); UREA NITROGEN 11 mg/dL (7-18); eGFR NON AFRICAN AMERICAN 85 mL/min (90-120)
--- NOTE | 2021-02-11 07:52 | NUR ---
PT RESTING QUIETLY IN BED WITH EYES CLOSED. AWAKENS UPON HEARING STAFF ENTER ROOM. RESP EVEN AND UNLABORED. PT VOICED FREQUENT AMBULATION TO BATHROOM. IV TO RIGHT FOREARM WITH NS @ 50ML/HR INFUSING VIA PUMP. SITE WITHOUT REDNESS OR EDEMA. REDNESS NOTED TO BILATERAL LOWER EXTREMITIES. DENIES FURTHER NEEDS AT THIS TIME. CL WITHIN REACH. ENCOURAGED TO CALL WITH NEEDS. CONTINUE POC
[2021-02-11 09:04] VITALS: BP 151/77
[2021-02-11 10:57] VITALS: BMI 25.8
[2021-02-11 12:45] VITALS: BP 110/45
[2021-02-11 16:15] VITALS: Ht 170.2 cm; Wt 74.8 kg
[2021-02-11 16:52] LABS: INR 1.16 (0.85-1.17); PROTIME 13.7 SECONDS (11.6-15.0)
--- NOTE | 2021-02-11 17:35 | NUR ---
PT REFUSED KYLE. PT STATED "I NEED MORE INFORMATION ABOUT THIS TEST AND AM IN PAIN. COME BACK VIJAY OR SUNDAY."
[2021-02-11 20:00] VITALS: BP 154/87
[2021-02-12 04:00] VITALS: BP 94/51
--- NOTE | 2021-02-12 07:54 | NUR ---
SITTING UP ON THE BEDSIDE WITH EYES OPEN, ALERT AND ORIENTED. COLLECTED 200ML FROM HAT IN THE TOILET. IV LOCATED TO RIGHT FA CURRENTLY RUNNING NS @ 50. DENIES CURRENT NEEDS, WILL CONT TO MONITOR.
[2021-02-12 08:58] VITALS: BP 120/58
[2021-02-12 09:19] LABS: BASOPHILS 0.5 % (0-2); EOSINOPHILS 4.9 % (0-7); HEMATOCRIT 41.5 % (36.0-48.0); HEMOGLOBIN 13.8 g/dL (12-16); LYMPHOCYTES 29.8 % (15-50); MCH 29.9 pg (26.0-34.0); MCHC 33.2 g/dL (31.0-37.0); MCV 90.2 fL (80.0-100.0); MEAN PLATELET VOLUME 7.8 fL (7.4-10.4); MONOCYTES 8.2 % (2-11); NEUTROPHILS 56.6 % (40-80); PLATELET COUNT 306 10x3/uL (130-400); RDW 13.7 % (11.5-14.5); WBC 8.7 10x3/uL (4.8-10.8)
[2021-02-12 09:40] LABS: ALBUMIN 3.2 g/dL (3.4-5.0); ALKALINE PHOSPHATASE 85 U/L (30-120); ALT (SGPT) 24 U/L (10-68); BILIRUBIN - TOTAL 0.45 mg/dL (0.2-1.3); CALC OSMOLALITY 272 mosm/kg (275-300); CALCIUM 8.4 mg/dL (8.5-10.1); CARBON DIOXIDE 27.9 mmol/L (21.0-32.0); CHLORIDE - SERUM 101 mmol/L (98-107); CREATININE - SERUM 0.7 mg/dL (0.6-1.3); GLUCOSE 106 mg/dL (74-106); POTASSIUM - SERUM 3.7 mmol/L (3.5-5.1); PROTEIN - SERUM 6.4 g/dL (6.4-8.2); SODIUM 137 mmol/L (136-145); UREA NITROGEN 10 mg/dL (7-18); eGFR NON AFRICAN AMERICAN 85 mL/min (90-120)
--- NOTE | 2021-02-12 13:37 | NUR ---
PRN ZOFRAN FOR NAUSEA.
[2021-02-12 13:38] VITALS: BP 104/68
[2021-02-12 17:47] VITALS: BP 137/45
[2021-02-12 20:00] VITALS: BP 138/65
[2021-02-13] VITALS: BP 145/69
--- NOTE | 2021-02-13 03:15 | NUR ---
I have reviewed this patient and I concur with the Shift Assessment completed by the Licensed Practical Nurse today this shift.
[2021-02-13 04:00] VITALS: BP 141/51
--- NOTE | 2021-02-13 04:36 | NUR ---
I have reviewed this patient and I concur with the Shift Assessment completed by the Licensed Practical Nurse today this shift.
[2021-02-13 06:51] LABS: BASOPHILS 1.1 % (0-2); EOSINOPHILS 2.7 % (0-7); HEMATOCRIT 39.3 % (36.0-48.0); HEMOGLOBIN 12.9 g/dL (12-16); LYMPHOCYTES 23.3 % (15-50); MCH 29.5 pg (26.0-34.0); MCHC 32.8 g/dL (31.0-37.0); MCV 90.1 fL (80.0-100.0); MEAN PLATELET VOLUME 7.6 fL (7.4-10.4); MONOCYTES 7.2 % (2-11); NEUTROPHILS 65.7 % (40-80); PLATELET COUNT 284 10x3/uL (130-400); RBC 4.36 10x6/uL (4.00-5.40); RDW 13.5 % (11.5-14.5); WBC 9.3 10x3/uL (4.8-10.8)
[2021-02-13 07:18] LABS: ALBUMIN 2.9 g/dL (3.4-5.0); ALKALINE PHOSPHATASE 76 U/L (30-120); ALT (SGPT) 19 U/L (10-68); BILIRUBIN - TOTAL 0.45 mg/dL (0.2-1.3); CALC OSMOLALITY 271 mosm/kg (275-300); CALCIUM 8.2 mg/dL (8.5-10.1); CARBON DIOXIDE 27.4 mmol/L (21.0-32.0); CHLORIDE - SERUM 101 mmol/L (98-107); CREATININE - SERUM 0.7 mg/dL (0.6-1.3); GLUCOSE 108 mg/dL (74-106); POTASSIUM - SERUM 3.6 mmol/L (3.5-5.1); PROTEIN - SERUM 5.9 g/dL (6.4-8.2); SODIUM 136 mmol/L (136-145); UREA NITROGEN 9 mg/dL (7-18); eGFR NON AFRICAN AMERICAN 85 mL/min (90-120)
[2021-02-13 07:21] VITALS: BP 170/76
[2021-02-13 12:29] VITALS: BP 163/77
[2021-02-13 16:15] VITALS: BP 149/82
[2021-02-13 20:00] VITALS: BP 149/75
[2021-02-14] VITALS: BP 152/76
[2021-02-14 04:00] VITALS: BP 146/79
--- NOTE | 2021-02-14 04:29 | NUR ---
I have reviewed this patient and I concur with the Shift Assessment completed by the Licensed Practical Nurse today this shift.
[2021-02-14 05:32] LABS: BASOPHILS 1.3 % (0-2); EOSINOPHILS 3.2 % (0-7); HEMATOCRIT 39.3 % (36.0-48.0); HEMOGLOBIN 12.9 g/dL (12-16); LYMPHOCYTES 26.2 % (15-50); MCH 29.6 pg (26.0-34.0); MCHC 32.8 g/dL (31.0-37.0); MCV 90.2 fL (80.0-100.0); MEAN PLATELET VOLUME 7.9 fL (7.4-10.4); MONOCYTES 8.4 % (2-11); NEUTROPHILS 60.9 % (40-80); PLATELET COUNT 283 10x3/uL (130-400); RBC 4.36 10x6/uL (4.00-5.40); RDW 13.6 % (11.5-14.5); WBC 8.6 10x3/uL (4.8-10.8)
[2021-02-14 06:22] LABS: ALKALINE PHOSPHATASE 69 U/L (30-120); BILIRUBIN - TOTAL 0.51 mg/dL (0.2-1.3); CALC OSMOLALITY 268 mosm/kg (275-300); CALCIUM 8.4 mg/dL (8.5-10.1); CARBON DIOXIDE 26.9 mmol/L (21.0-32.0); CHLORIDE - SERUM 101 mmol/L (98-107); CREATININE - SERUM 0.7 mg/dL (0.6-1.3); GLUCOSE 107 mg/dL (74-106); POTASSIUM - SERUM 3.6 mmol/L (3.5-5.1); SODIUM 135 mmol/L (136-145); UREA NITROGEN 9 mg/dL (7-18); eGFR NON AFRICAN AMERICAN 85 mL/min (90-120)
[2021-02-14 06:25] LABS: ALT (SGPT) 24 U/L (10-68)
[2021-02-14 10:27] VITALS: BP 130/58
--- NOTE | 2021-02-14 11:45 | NUR ---
dr pepe here to visit with patient
[2021-02-14] MEDS ORDERED: LEVOFLOXACIN500 MG PO (15:01)
--- NOTE | 2021-02-14 15:35 | NUR ---
monitor dcd to be ready for dischrge later today
--- NOTE | 2021-02-14 16:47 | NUR ---
OT NOTE: PT REFUSED TMT ON THIS DATE.. WILL ATTEMPT TOMORROW. ARIS TORRES, OTR/L
--- NOTE | 2021-02-14 17:06 | NUR ---
IV REMOVED WITH TIP INTACT. DRESSING APPLIED. DC PAPER GIVEN AND REVIEWED. QUESTIONS ANSWERED. AWAITING RIDE HOME
== END 2021-02-14 17:11 | disposition home or self-care (01) | DRG 603 ==
LOC: D.SDCHOLD 12:06 → D.MS 12:06
PROVIDERS: Family Medicine; Radiology Diagnostic Radiology; ADMIT Family Medicine; ATTEND Family Medicine
DX: L03.116 Cellulitis of left lower limb (principal); I48.20 Chronic atrial fibrillation, unspecified; L03.115 Cellulitis of right lower limb; I25.10 Atherosclerotic heart disease of native coronary artery without angina pectoris; J44.9 Chronic obstructive pulmonary disease, unspecified; M19.90 Unspecified osteoarthritis, unspecified site; G89.29 Other chronic pain; M54.9 Dorsalgia, unspecified; Z79.01 Long term (current) use of anticoagulants; Z95.5 Presence of coronary angioplasty implant and graft; Z78.0 Asymptomatic menopausal state; Z86.73 Personal history of transient ischemic attack (TIA), and cerebral infarction without residual deficits; I25.2 Old myocardial infarction; Z87.891 Personal history of nicotine dependence; I10 Essential (primary) hypertension; I73.9 Peripheral vascular disease, unspecified

== ENCOUNTER 2021-02-15 13:45 | Emergency (ER) | payer MEDICARE, MEDICAID ==
[~2021-02-15 13:45] MED LIST changes: +CLINDAMYCIN HC300 MG PO; +COREG6.25 MG PO; +LANOXIN125 MCG PO; +LEVOFLOXACIN500 MG PO; +LIPITOR40 MG PO
[2021-02-15 14:48] LABS: BASOPHILS 1.8 % (0-2); EOSINOPHILS 2.7 % (0-7); HEMATOCRIT 41.7 % (36.0-48.0); HEMOGLOBIN 13.7 g/dL (12-16); LYMPHOCYTES 20.1 % (15-50); MCH 29.6 pg (26.0-34.0); MCHC 32.8 g/dL (31.0-37.0); MCV 90.4 fL (80.0-100.0); MEAN PLATELET VOLUME 7.7 fL (7.4-10.4); MONOCYTES 9.1 % (2-11); NEUTROPHILS 66.3 % (40-80); PLATELET COUNT 295 10x3/uL (130-400); RBC 4.62 10x6/uL (4.00-5.40); RDW 13.4 % (11.5-14.5); WBC 9.1 10x3/uL (4.8-10.8)
[2021-02-15 14:51] LABS: CALC OSMOLALITY 266 mosm/kg (275-300); CALCIUM 8.9 mg/dL (8.5-10.1); CARBON DIOXIDE 31.7 mmol/L (21.0-32.0); CHLORIDE - SERUM 98 mmol/L (98-107); CREATININE - SERUM 0.7 mg/dL (0.6-1.3); GLUCOSE 111 mg/dL (74-106); POTASSIUM - SERUM 3.7 mmol/L (3.5-5.1); SODIUM 134 mmol/L (136-145); UREA NITROGEN 8 mg/dL (7-18); eGFR NON AFRICAN AMERICAN 85 mL/min (90-120)
[2021-02-15 15:00] LABS: ALBUMIN 3.3 g/dL (3.4-5.0); ALKALINE PHOSPHATASE 81 U/L (30-120); BILIRUBIN - TOTAL 0.38 mg/dL (0.2-1.3); PROTEIN - SERUM 6.6 g/dL (6.4-8.2); TROPONIN-I < 0.017 ng/mL (0.000-0.060)
[2021-02-15 15:08] LABS: ALT (SGPT) 37 U/L (10-68)
[2021-02-15 15:31] VITALS: Ht 170.2 cm
== END 2021-02-15 18:00 | disposition home or self-care (01) ==
LOC: D.ER 13:45
PROVIDERS: Emergency Medicine
DX: R53.1 Weakness (principal); G45.9 Transient cerebral ischemic attack, unspecified; Z86.73 Personal history of transient ischemic attack (TIA), and cerebral infarction without residual deficits; I10 Essential (primary) hypertension; J44.9 Chronic obstructive pulmonary disease, unspecified